=== PATIENT | female | born 1960 | race Caucasian/White ===

== ENCOUNTER 2019-08-03 01:39 | Inpatient (IN) | payer BC ==
[2019-08-03] MEDS ORDERED: Sodium Chloride 0.9% 1000 ML 1,000 ML IV STA ×3 (01:42→03:14)
[2019-08-03] MEDS ORDERED: Zofran 4 MG/2 ML VIAL IV ONE (01:42)
[2019-08-03] MEDS ORDERED: SUBLIMAZE 100 MCG/2 ML IV ONE ×3 (01:42→07:36)
--- NOTE | 2019-08-03 01:42 | ERPHSYRPT ---
- History of Present Illness Time Seen by Provider: 08/03/19 01:39 Historian: patient Exam Limitations: no limitations Physician History: For the past 90 minutes pt has had generalized abdominal cramps, vomiting x10 without blood, diaphoresis and shortness of air. pt denies chest pain, diarrhea , fever. Last BM was yesterday & wnl. Prior to abdominal pain pt ate yogurt, grapes and a peanut butter & jelly sandwich. Allergies/Adverse Reactions: amoxicillin [From Augmentin] Allergy (Intermediate, Verified 08/03/19 02:13) clavulanic acid [From Augmentin] Allergy (Intermediate, Verified 08/03/19 02:13) - Review of Systems Constitutional: Other (diaphoresis), No Fever Respiratory: Dyspnea Cardiac: No Chest Pain Abdominal/Gastrointestinal: Abdominal Pain, Vomiting, No Diarrhea Musculoskeletal: Other (legs have felt "heavy" tonight when abdominal pain started(pt has had this feeling "heavy" feeling in her legs before tonight).) All Other Systems: Reviewed and Negative - Nursing Vital Signs Nursing Vital Signs: Initial Vital Signs Temperature 95.5 F 08/03/19 01:42 Pulse Rate 81 08/03/19 01:42 Respiratory Rate 18 08/03/19 01:42 Blood Pressure 121/81 08/03/19 01:42 O2 Sat by Pulse Oximetry 96 08/03/19 01:42 Pain Scale Pain Intensity 4 - Physical Exam General Appearance: alert Eye Exam: PERRL/EOMI Ears, Nose, Throat Exam: pharynx normal Neck Exam: normal inspection Respiratory Exam: lungs clear Cardiovascular Exam: normal heart sounds Gastrointestinal/Abdomen Exam: soft, other (b.s. mildly hyperactive and normotonic.) Back Exam: normal inspection Extremity Exam: No pedal edema Neurologic Exam: alert, cooperative Skin Exam: diaphoresis - Course Nursing assessment & vital signs reviewed: Yes EKG Interpreted by Me: RATE (71), Sinus Rhythm, NORMAL AXIS, NORMAL INTERVALS - Radiology Exams Chest X-ray Interpretation: Interpreted by me, No Pneumonia - CT Exams Abdomen/Pelvis CT Interpretation: Tele-radiologist Report (no acute findings.) Ordered Tests: Active Orders 24 hr Category Date Time Status EKG-ER Only STAT Care 08/03/19 01:42 Active IV Insertion STAT Care 08/03/19 01:42 Active ABDOMEN AND PELVIS W/0 CONTRAS [CT] Stat Exams 08/03/19 01:44 Taken CHEST 1 VIEW (PORTABLE) Stat Exams 08/03/19 02:07 Taken AMYLASE Stat Lab 08/03/19 02:10 Completed BLOOD CULTURE Stat Lab 08/03/19 02:00 Received CBC W DIFF Stat Lab 08/03/19 02:10 Completed CMP Stat Lab 08/03/19 02:10 Completed CULTURE,URINE Stat Lab 08/03/19 02:17 Received D-DIMER QUANTITATIVE Stat Lab 08/03/19 02:10 Completed LIPASE Stat Lab 08/03/19 02:10 Completed Lactic Acid Stat Lab 08/03/19 03:35 Completed MAGNESIUM Stat Lab 08/03/19 02:10 Completed NT PRO BNP Stat Lab 08/03/19 02:10 Completed Occult Blood, Other Screening Stat Lab 08/03/19 03:21 Completed TROPONIN Stat Lab 08/03/19 02:10 Completed UA W/RFX UR CULTURE Stat Lab 08/03/19 02:17 Completed Medication Summary Generic Name Dose Route Start Last Admin Trade Name Freq PRN Reason Stop Dose Admin Levofloxacin/Dextrose 500 mg in 100 mls @ 100 mls/hr 08/03/19 03:58 Levofloxacin 500mg/100ml D5w IV 08/03/19 04:57 STAT STA Discontinued Medications Generic Name Dose Route Start Last Admin Trade Name Freq PRN Reason Stop Dose Admin Fentanyl Citrate 50 mcg 08/03/19 01:42 08/03/19 01:54 Sublimaze 100 Mcg/2 Ml IV 08/03/19 01:43 50 mcg STAT ONE Administration Fentanyl Citrate Confirm 08/03/19 01:52 Sublimaze 100 Mcg/2 Ml Administered 08/03/19 01:53 Dose 100 mcg .ROUTE .STK-MED ONE Sodium Chloride 1,000 mls @ 999 mls/hr 08/03/19 01:42 08/03/19 04:48 Sodium Chloride 0.9% 1000 Ml IV 08/03/19 02:42 Infused .Q1H1M STA Infusion Sodium Chloride Confirm 08/03/19 01:52 Sodium Chloride 0.9% 1000 Ml Administered 08/03/19 01:53 Dose 1,000 mls @ ud .ROUTE .STK-MED ONE Sodium Chloride 1,000 mls @ 999 mls/hr 08/03/19 02:34 08/03/19 04:48 Sodium Chloride 0.9% 1000 Ml IV 08/03/19 03:34 Infused .Q1H1M STA Infusion Sodium Chloride Confirm 08/03/19 02:41 Sodium Chloride 0.9% 1000 Ml Administered 08/03/19 02:42 Dose 1,000 mls @ ud .ROUTE .STK-MED ONE Sodium Chloride 1,000 mls @ 999 mls/hr 08/03/19 03:14 08/03/19 04:24 Sodium Chloride 0.9% 1000 Ml IV 08/03/19 04:14 999 mls/hr .Q1H1M STA Administration Sodium Chloride Confirm 08/03/19 03:23 Sodium Chloride 0.9% 1000 Ml Administered 08/03/19 03:24 Dose 1,000 mls @ ud .ROUTE .STK-MED ONE Metronidazole 500 mg in 100 mls @ 200 mls/hr 08/03/19 03:58 08/03/19 04:23 Flagyl 500 Mg Ivpb IV 08/03/19 04:27 100 ml/hr STAT STA 100 mls/hr Administration Metronidazole Confirm 08/03/19 04:20 Flagyl 500 Mg Ivpb Administered 08/03/19 04:21 Dose 500 mg in 100 mls @ ud IV .STK-MED ONE Levofloxacin/Dextrose Confirm 08/03/19 04:20 Levofloxacin 500mg/100ml D5w Administered 08/03/19 04:21 Dose 500 mg in 100 mls @ ud IV .STK-MED ONE Ondansetron HCl 4 mg 08/03/19 01:42 08/03/19 01:54 Zofran 4 Mg/2 Ml Vial IV 08/03/19 01:43 4 mg STAT ONE Administration Ondansetron HCl Confirm 08/03/19 01:52 Zofran 4 Mg/2 Ml Vial Administered 08/03/19 01:53 Dose 4 mg .ROUTE .STK-MED ONE Lab/Rad Data: Laboratory Result Diagrams 08/03/19 02:10 08/03/19 02:10 Laboratory Results 08/03/19 08/03/19 08/03/19 Range/Units 03:35 03:21 02:17 WBC (4.0-10.5) K/mm3 RBC (4.1-5.4) M/mm3 Hgb (12.0-16.0) gm/dl Hct (35-47) % MCV (78-100) fl MCH (26-32) pg MCHC (32-36) g/dl RDW (11.5-14.0) % Plt Count (150-450) K/mm3 MPV (7.5-11.0) fl Gran % (36.0-66.0) % Eos # (Auto) (0-0.5) Absolute Lymphs (auto) (1.0-4.6) Absolute Monos (auto) (0.0-1.3) Lymphocytes % (24.0-44.0) % Monocytes % (0.0-12.0) % Eosinophils % (0.00-5.0) % Basophils % (0.0-0.4) % Absolute Granulocytes (1.4-6.9) Basophils # (0-0.4) D-Dimer (215-500) ng/mL Sodium (137-145) mmol/L Potassium (3.5-5.1) mmol/L Chloride (98-107) mmol/L Carbon Dioxide (22-30) mmol/L Anion Gap (5-15) MEQ/L BUN (7-17) mg/dL Creatinine (0.52-1.04) mg/dL Estimated GFR ML/MIN Glucose (74-106) mg/dL Lactic Acid 1.0 (0.4-2.0) Calcium (8.4-10.2) mg/dL Magnesium (1.6-2.3) mg/dL Total Bilirubin (0.2-1.3) mg/dL AST (14-36) U/L ALT (0-35) U/L Alkaline Phosphatase (38-126) U/L Troponin I (0.000-0.034) ng/mL NT-Pro-B Natriuret Pep (0-900) pg/mL Serum Total Protein (6.3-8.2) g/dL Albumin (3.5-5.0) g/dL Amylase (30-110) U/L Lipase (23-300) U/L Urine Color YELLOW (YELLOW) Urine Appearance SLIGHTLY CLOUDY (CLEAR) Urine pH 5.0 (5-6) Ur Specific [place] 1.014 (1.005-1.025) Urine Protein NEGATIVE (Negative) Urine Ketones NEGATIVE (NEGATIVE) Urine Blood NEGATIVE (0-5) Rafat/ul Urine Nitrite NEGATIVE (NEGATIVE) Urine Bilirubin NEGATIVE (NEGATIVE) Urine Urobilinogen NEGATIVE (0-1) mg/dL Ur Leukocyte Esterase NEGATIVE (NEGATIVE) Urine WBC (Auto) 3-5 (0-5) /HPF Urine RBC (Auto) 0-2 (0-2) /HPF U Hyaline Cast (Auto) 11-25 (0-2) /LPF U Epithel Cells (Auto) RARE (FEW) /HPF Urine Bacteria (Auto) RARE (NEGATIVE) /HPF Other Casts (Auto) NEGATIVE (NEGATIVE) /LPF Urine Mucus (Auto) SLIGHT (NEGATIVE) /HPF Urine Culture Reflexed ORDERED SEPARATELY (NO) Urine Glucose NEGATIVE (NEGATIVE) mg/dL Stool Occult Blood NEGATIVE (Negative) 08/03/19 08/03/19 08/03/19 Range/Units 02:10 02:10 02:10 WBC (4.0-10.5) K/mm3 RBC (4.1-5.4) M/mm3 Hgb (12.0-16.0) gm/dl Hct (35-47) % MCV (78-100) fl MCH (26-32) pg MCHC (32-36) g/dl RDW (11.5-14.0) % Plt Count (150-450) K/mm3 MPV (7.5-11.0) fl Gran % (36.0-66.0) % Eos # (Auto) (0-0.5) Absolute Lymphs (auto) (1.0-4.6) Absolute Monos (auto) (0.0-1.3) Lymphocytes % (24.0-44.0) % Monocytes % (0.0-12.0) % Eosinophils % (0.00-5.0) % Basophils % (0.0-0.4) % Absolute Granulocytes (1.4-6.9) Basophils # (0-0.4) D-Dimer [id number] H* (215-500) ng/mL Sodium (137-145) mmol/L Potassium (3.5-5.1) mmol/L Chloride (98-107) mmol/L Carbon Dioxide (22-30) mmol/L Anion Gap (5-15) MEQ/L BUN (7-17) mg/dL Creatinine (0.52-1.04) mg/dL Estimated GFR ML/MIN Glucose (74-106) mg/dL Lactic Acid (0.4-2.0) Calcium (8.4-10.2) mg/dL Magnesium 2.4 H (1.6-2.3) mg/dL Total Bilirubin (0.2-1.3) mg/dL AST (14-36) U/L ALT (0-35) U/L Alkaline Phosphatase (38-126) U/L Troponin I < 0.012 (0.000-0.034) ng/mL NT-Pro-B Natriuret Pep 136 (0-900) pg/mL Serum Total Protein (6.3-8.2) g/dL Albumin (3.5-5.0) g/dL Amylase (30-110) U/L Lipase (23-300) U/L Urine Color (YELLOW) Urine Appearance (CLEAR) Urine pH (5-6) Ur Specific [place] (1.005-1.025) Urine Protein (Negative) Urine Ketones (NEGATIVE) Urine Blood (0-5) Rafat/ul Urine Nitrite (NEGATIVE) Urine Bilirubin (NEGATIVE) Urine Urobilinogen (0-1) mg/dL Ur Leukocyte Esterase (NEGATIVE) Urine WBC (Auto) (0-5) /HPF Urine RBC (Auto) (0-2) /HPF U Hyaline Cast (Auto) (0-2) /LPF U Epithel Cells (Auto) (FEW) /HPF Urine Bacteria (Auto) (NEGATIVE) /HPF Other Casts (Auto) (NEGATIVE) /LPF Urine Mucus (Auto) (NEGATIVE) /HPF Urine Culture Reflexed (NO) Urine Glucose (NEGATIVE) mg/dL Stool Occult Blood (Negative) 08/03/19 08/03/19 Range/Units 02:10 02:10 WBC 21.8 H (4.0-10.5) K/mm3 RBC 4.95 (4.1-5.4) M/mm3 Hgb 14.9 (12.0-16.0) gm/dl Hct 46.1 (35-47) % MCV 93.1 (78-100) fl MCH 30.1 (26-32) pg MCHC 32.3 (32-36) g/dl RDW 15.1 H (11.5-14.0) % Plt Count 260 (150-450) K/mm3 MPV 10.9 (7.5-11.0) fl Gran % 80.2 H (36.0-66.0) % Eos # (Auto) 0.24 (0-0.5) Absolute Lymphs (auto) 3.03 (1.0-4.6) Absolute Monos (auto) 1.00 (0.0-1.3) Lymphocytes % 13.9 L (24.0-44.0) % Monocytes % 4.6 (0.0-12.0) % Eosinophils % 1.1 (0.00-5.0) % Basophils % 0.2 (0.0-0.4) % Absolute Granulocytes 17.48 H (1.4-6.9) Basophils # 0.05 (0-0.4) D-Dimer (215-500) ng/mL Sodium 141 (137-145) mmol/L Potassium 5.2 H (3.5-5.1) mmol/L Chloride 108 H (98-107) mmol/L Carbon Dioxide 20 L (22-30) mmol/L Anion Gap 18.0 H (5-15) MEQ/L BUN 31 H (7-17) mg/dL Creatinine 1.70 H (0.52-1.04) mg/dL Estimated GFR 32.8 ML/MIN Glucose 228 H (74-106) mg/dL Lactic Acid (0.4-2.0) Calcium 10.3 H (8.4-10.2) mg/dL Magnesium (1.6-2.3) mg/dL Total Bilirubin 0.70 (0.2-1.3) mg/dL AST 42 H (14-36) U/L ALT 27 (0-35) U/L Alkaline Phosphatase 239 H (38-126) U/L Troponin I (0.000-0.034) ng/mL NT-Pro-B Natriuret Pep (0-900) pg/mL Serum Total Protein 8.8 H (6.3-8.2) g/dL Albumin 4.8 (3.5-5.0) g/dL Amylase 87 (30-110) U/L Lipase 54 (23-300) U/L Urine Color (YELLOW) Urine Appearance (CLEAR) Urine pH (5-6) Ur Specific [place] (1.005-1.025) Urine Protein (Negative) Urine Ketones (NEGATIVE) Urine Blood (0-5) [place]/ul Urine Nitrite (NEGATIVE) Urine Bilirubin (NEGATIVE) Urine Urobilinogen (0-1) mg/dL Ur Leukocyte Esterase (NEGATIVE) Urine WBC (Auto) (0-5) /HPF Urine RBC (Auto) (0-2) /HPF U Hyaline Cast (Auto) (0-2) /LPF U Epithel Cells (Auto) (FEW) /HPF Urine Bacteria (Auto) (NEGATIVE) /HPF Other Casts (Auto) (NEGATIVE) /LPF Urine Mucus (Auto) (NEGATIVE) /HPF Urine Culture Reflexed (NO) Urine Glucose (NEGATIVE) mg/dL Stool Occult Blood (Negative) - Progress Progress Note: 08/03/19 04:02 pt had multiple episodes of diarrhea in er. Discussed with DrMaru: Alma (obs) - Departure Departure Disposition: Observation, Transfer Clinical Impression: Abdominal pain, Vomiting, Diarrhea, shortness of air, Elevated d-dimer, Leukocytosis Condition: Stable Critical Care Time: No Referrals: DORINA CERRATO MD [Primary Care Provider] -
[2019-08-03] MEDS ORDERED: Sodium Chloride 0.9% 1000 ML 1,000 ML ONE ×3 (01:52→03:23)
[2019-08-03] MEDS ORDERED: SUBLIMAZE 100 MCG/2 ML ONE ×2 (01:52→05:31)
[2019-08-03] MEDS ORDERED: Zofran 4 MG/2 ML VIAL ONE (01:52)
[2019-08-03 02:12] LABS: Absolute Neutrophil Ct (ANC) 17.48 (1.4-6.9); BASOPHIL % 0.2 % (0.0-0.4); Basophil (Absolute #) 0.05 (0-0.4); Eosinophil % 1.1 % (0.00-5.0); Eosinophil (Absolute #) 0.24 (0-0.5); Hematocrit 46.1 % (35-47); Hemoglobin 14.9 gm/dl (12.0-16.0); Lymphocyte (Absolute #) 3.03 (1.0-4.6); Lymphocytes % 13.9 % (24.0-44.0); Mean Cell Volume 93.1 fl (78-100); Mean Corpuscular Hemoglobin 30.1 pg (26-32); Mean Corpuscular Hgb Concent. 32.3 g/dl (32-36); Mean Platelet Volume 10.9 fl (7.5-11.0); Monocytes % 4.6 % (0.0-12.0); Neutrophil % 80.2 % (36.0-66.0); Platelet Count 260 K/mm3 (150-450); Red Blood Count 4.95 M/mm3 (4.1-5.4); Red Cell Distribution Width 15.1 % (11.5-14.0); White Blood Count 21.8 K/mm3 (4.0-10.5)
[2019-08-03 02:24] LABS: ALBUMIN 4.8 g/dL (3.5-5.0); BILIRUBIN,TOTAL 0.7 mg/dL (0.2-1.3); Calcium 10.3 mg/dL (8.4-10.2); Creatinine 1 1.7 mg/dL (0.52-1.04); Potassium 5.2 mmol/L (3.5-5.1); Total Protein 8.8 g/dL (6.3-8.2)
[2019-08-03 02:27] LABS: Appearance SLIGHTLY CLOUDY (CLEAR); Bacteria RARE /HPF (NEGATIVE); Bilirubin NEGATIVE (NEGATIVE); Blood NEGATIVE Ery/ul (0-5); Epithelial Cells RARE /HPF (FEW); Glucose NEGATIVE (NEGATIVE); Ketones NEGATIVE (NEGATIVE); Leukocyte Esterase NEGATIVE (NEGATIVE); Mucus SLIGHT /HPF (NEGATIVE); Nitrite NEGATIVE (NEGATIVE); Protein,Urine Dip NEGATIVE (Negative); RBC 0-2 /HPF (0-2); Specific Gravity 1.014 (1.005-1.025); Urobilinogen NEGATIVE mg/dL (0-1)
[2019-08-03 02:33] LABS: MAGNESIUM 2.4 mg/dL (1.6-2.3)
[2019-08-03] MEDS ORDERED: Levofloxacin 500MG/100ML D5W 500 MG/100 ML BAG IV STA (03:58)
[2019-08-03] MEDS ORDERED: FLAGYL 500 MG IVPB 500 MG/100 ML BAG IV STA (03:58)
[2019-08-03] MEDS ORDERED: Levofloxacin 500MG/100ML D5W 500 MG/100 ML BAG IV ONE (04:20)
[2019-08-03] MEDS ORDERED: FLAGYL 500 MG IVPB 500 MG/100 ML BAG IV ONE (04:20)
[2019-08-03] MEDS ORDERED: NovoLIN R SQ PRN (05:59)
[2019-08-03] MEDS: MORPHINE SULFATE 2 MG INJ IV PRN ×3 (06:41→15:40)
[2019-08-03] MEDS: Sodium Chloride 0.9% 1000 ML 1,000 ML IV SCH ×2 (06:50→20:38)
[2019-08-03 09:06] LABS: Absolute Neutrophil Ct (ANC) 14.83 (1.4-6.9); BASOPHIL % 0.1 % (0.0-0.4); Basophil (Absolute #) 0.01 (0-0.4); Eosinophil % 0.1 % (0.00-5.0); Eosinophil (Absolute #) 0.01 (0-0.5); Hematocrit 37.9 % (35-47); Hemoglobin 12.2 gm/dl (12.0-16.0); Lymphocyte (Absolute #) 0.72 (1.0-4.6); Lymphocytes % 4.4 % (24.0-44.0); Mean Cell Volume 94.3 fl (78-100); Mean Corpuscular Hemoglobin 30.3 pg (26-32); Mean Corpuscular Hgb Concent. 32.2 g/dl (32-36); Mean Platelet Volume 10.8 fl (7.5-11.0); Monocyte (Absolute #) 0.87 (0.0-1.3); Monocytes % 5.3 % (0.0-12.0); Neutrophil % 90.1 % (36.0-66.0); Platelet Count 168 K/mm3 (150-450); Red Blood Count 4.02 M/mm3 (4.1-5.4); Red Cell Distribution Width 14.8 % (11.5-14.0); White Blood Count 16.4 K/mm3 (4.0-10.5)
--- NOTE | 2019-08-03 09:06 | XRAY ---
Indication: Abdomen pain. Multiple contiguous axial images obtained through the abdomen and pelvis without contrast as ordered. Comparison: None Lung bases demonstrates minimal bilateral dependent atelectasis. Heart is borderline enlarged. Moderate size hiatal hernia with partial intrathoracic stomach. Noncontrasted stomach and bowel loops appear nonobstructed. Patient reports appendectomy, hysterectomy, and cholecystectomy. Mild/moderate diffuse scattered colonic fecal debris throughout, greatest in the sigmoid. No free fluid/air. Inferior left kidney demonstrates nonobstructing punctate calculus. Plunkett catheter drains the urinary bladder. Remaining liver, pancreas, spleen, adrenal glands, kidneys, and ureters appear unremarkable for noncontrast exam. Minimal aortoiliac calcifications without AAA. Osseous structures intact with L5-S1 posterior fusion surgery. Impression: 1. Diffuse fecal stasis without obstruction. 2. Nonobstructing left renal micro-calculus, hiatal hernia with partial intrathoracic stomach, and borderline cardiomegaly. 3. Remaining CT abdomen/pelvis without contrast exam is negative. Comment: Preliminary interpretation was made by [facility]. No critical discrepancy.
[2019-08-03 09:08] LABS: ANION GAP 14.5 MEQ/L (5-15); Calcium 8.3 mg/dL (8.4-10.2); Creatinine 1 1.34 mg/dL (0.52-1.04); Potassium 5.6 mmol/L (3.5-5.1)
--- NOTE | 2019-08-03 09:08 | XRAY ---
Indication: Dyspnea. Comparison: None Portable apical lordotic chest demonstrates cardiomegaly. No focal infiltrate, consolidation, or large effusion. Bony thorax intact. Impression: Cardiomegaly. Negative acute pneumonic process or CHF.
[2019-08-03] MEDS: Ativan 2 MG/1 ML VIAL IV PRN ×2 (09:14→12:33)
--- NOTE | 2019-08-03 09:28 | PCM.HP ---
History of Present Illness - Chief Complaint Chief Complaint: abdominal pain; dyspnea; elevated d-dimer; leukocytosis; ARF; diarrhea Date: 08/03/19 History of Present Illness: is a 59 year old female of Dr. Noble in [place] who presented to the ER with vomiting and abdominal pain and then developed diarrhea. 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 Capone. Before she went to work, she had a low blood glucose so she ate a peanut butter sandwich. At work she reports developing nausea around 9:30 pm and then vomited x 10. She reports her blood glucose dropped so they have her glucagon injection at work and took her insulin pump off. She had the vomiting and nausea before the glucagon was given. Her reports they called him to come pick her up. She reports abdominmal pain started around 11 pm and she was brought to the ER. She also reports she was short of breath when walking into work and couldn't even make it to wear she needed to be. She has city water, has not traveled and ate at [employer] two night ago. She reports she was told her temperature in the ER was 93 degrees and she needed a bear hugger. She is not sure why it was low as she was not out in the cold for any extended period of time. She reports pain in both her lower quadrants. She reports hx of fibromyalgia and her reports she does have a low pain tolerance. Diarrhea started in the ER per patient and ER report. She has not had any kidney problems in the past. She reports she has not been drinking much or urinating much the past few days and her states that after her knee surgery in Apr she seemed to isolate herself in her room. She sees Dr. Kennedy for her diabetes, Dr. España for her heart problems, and Dr. Peraza for her mental health problems. She reports continued severe lower abdominal pain that is only relieved by pain medication for about 30 minutes. No history of blood clots; she reports her legs have felt heavy for days. - Review of Systems Constitutional: Other Eyes: No Symptoms Ears, Nose, & Throat: No Symptoms Respiratory: Other (dyspnea with exertion), No Cough Cardiac: No Symptoms, No Chest Pain Abdominal/Gastrointestinal: Abdominal Pain, Nausea, Vomiting, Diarrhea Genitourinary Symptoms: Other (not urinating as much as normal) Musculoskeletal: No Symptoms Skin: No Symptoms, No Rash Psychological: Depression Medications & Allergies Home Medications: Home Medication List Alendronate Sodium 70 mg PO WEEKLY 08/03/19 [History Confirmed 08/03/19] Amlodipine Besylate 2.5 mg PO DAILY 08/03/19 [History Confirmed 08/03/19] Aspirin EC 325 mg [Ecotrin 325 MG] 325 mg PO DAILY 08/03/19 [History Confirmed 08/03/19] Atorvastatin Calcium [Lipitor 20MG Tablet] 20 mg PO DAILY 08/03/19 [History Confirmed 08/03/19] Clonazepam 1 mg PO TID 08/03/19 [History Confirmed 08/03/19] Clopidogrel Bisulfate [Clopidogrel] 75 mg PO DAILY 08/03/19 [History Confirmed 08/03/19] Ergocalciferol (Vitamin D2) [Vitamin D] 50,000 unit PO DAILY 08/03/19 [History Confirmed 08/03/19] Furosemide 40 mg [Lasix 40 MG] 40 mg PO DAILY 08/03/19 [History Confirmed 08/03/19] Insulin Regular, Human [Humulin R U-500 Kwikpen] 500 unit SQ UD 08/03/19 [ History Confirmed 08/03/19] Isosorbide Mononitrate 60 mg [Imdur 60MG] 60 mg PO DAILY 08/03/19 [History Confirmed 08/03/19] Nitroglycerin [Nitrostat] 0.4 mg SL UD 08/03/19 [History Confirmed 08/03/19] Pantoprazole 20 mg [Protonix 20MG Tablet] 20 mg PO DAILY 08/03/19 [ History Confirmed 08/03/19] Potassium Chloride 10 Meq Tab* [Klor Con 10 MEQ] 20 meq PO DAILY 08/03/19 [ History Confirmed 08/03/19] Venlafaxine HCl [Effexor Xr] 150 mg PO DAILY 08/03/19 [History Confirmed ] buPROPion HCl [Bupropion HCl Sr] 150 mg PO DAILY 08/03/19 [History Confirmed ] carvediloL [Carvedilol] 6.25 mg PO BID 08/03/19 [History Confirmed 08/03/19] lamoTRIgine [Lamotrigine] 100 mg PO DAILY 08/03/19 [History Confirmed 08/03/19] lisinopriL [Lisinopril] 10 mg PO BID 08/03/19 [History Confirmed 08/03/19] Allergies/Adverse Reactions: Allergies Allergy/AdvReac Type Severity Reaction Status Date / Time amoxicillin [From Augmentin] Allergy Intermediate Verified 08/03/19 02:13 clavulanic acid Allergy Intermediate Verified 08/03/19 02:13 [From Augmentin] - Past Medical History Neurological History: Peripheral Neuropathy Cardiac History: Coronary Artery Disease, Hypertension, Other (stents x2 (in LAD ) with Dr. España) Endocrine Medical History: Diabetes Type II, Other (sees Dr. Kennedy; osteopenia) Pyscho-Social History: Bipolar, Depression Comment: frequent constipation - Past Surgical History Past Surgical History: Yes GI Surgical History: Appendectomy, Cholecystectomy Musculskeletal Surgical Hx: Orthopedic Surgery, Other (left knee meniscus surgery 2019) Female Surgical History: Hysterectomy, Section, Tubal Ligation, Other ( x 3) Other Surgical History: back surgery, rt knee scope - Social History Smoking Status: Former smoker How long have you smoked: quit 1999 Exposure to second hand smoke: No Alcohol: None Drug Use: none Significant Family History: heart disease, other (father had lung cancer; mother had heart disease and CHF; no family hx of blood clots) - Physical Exam Vital Signs: Vital Signs - 24 hr Temp Pulse Resp BP Pulse Ox 08/03/19 08:30 98.0 F 78 18 160/70 95 08/03/19 08:00 97.6 F 72 119/72 95 08/03/19 07:58 95 08/03/19 05:50 97.6 F 72 18 119/72 98 08/03/19 05:37 97.3 F 78 18 119/82 96 08/03/19 05:00 96.8 F 75 18 118/58 96 08/03/19 04:30 96.6 F 74 18 135/53 98 08/03/19 03:53 96.3 F 71 18 125/55 97 08/03/19 03:19 96.3 F 71 18 114/72 97 02/13/20 02:50 96.4 F 72 18 140/60 97 08/03/19 02:10 97.3 F 75 22 117/86 98 08/03/19 01:50 74 22 124/67 97 08/03/19 01:42 95.5 F 81 18 121/81 96 General Appearance: moderate distress, obese, other ( at bedside; answers questions appropriately) Neurologic Exam: alert, cooperative Respiratory Exam: normal breath sounds, lungs clear, No crackles/rales, No rhonchi, No wheezing Cardiovascular Exam: regular rate/rhythm, normal heart sounds, No murmur, No friction rub, No gallop Gastrointestinal/Abdomen Exam: soft, other (no bowel sounds, + guarding at left lower quadrant, no rigidity, tender throughout), No mass Extremity Exam: other (no c/c/e, no tenderness of calves) Results - Labs Lab/Micro Results: Accuchecks Date 08/03/19 Time 08:07 Accucheck Value: 275 Lab Results-Last 24 Hours 08/03/19 08/03/19 08/03/19 Range/Units 02:10 02:10 02:10 WBC 21.8 H (4.0-10.5) K/mm3 RBC 4.95 (4.1-5.4) M/mm3 Hgb 14.9 (12.0-16.0) gm/dl Hct 46.1 (35-47) % MCV 93.1 (78-100) fl MCH 30.1 (26-32) pg MCHC 32.3 (32-36) g/dl RDW 15.1 H (11.5-14.0) % Plt Count 260 (150-450) K/mm3 MPV 10.9 (7.5-11.0) fl Gran % 80.2 H (36.0-66.0) % Eos # (Auto) 0.24 (0-0.5) Absolute Lymphs (auto) 3.03 (1.0-4.6) Absolute Monos (auto) 1.00 (0.0-1.3) Lymphocytes % 13.9 L (24.0-44.0) % Monocytes % 4.6 (0.0-12.0) % Eosinophils % 1.1 (0.00-5.0) % Basophils % 0.2 (0.0-0.4) % Absolute Granulocytes 17.48 H (1.4-6.9) Basophils # 0.05 (0-0.4) D-Dimer (215-500) ng/mL Sodium 141 (137-145) mmol/L Potassium 5.2 H (3.5-5.1) mmol/L Chloride 108 H (98-107) mmol/L Carbon Dioxide 20 L (22-30) mmol/L Anion Gap 18.0 H (5-15) MEQ/L BUN 31 H (7-17) mg/dL Creatinine 1.70 H (0.52-1.04) mg/dL Estimated GFR 32.8 ML/MIN Glucose 228 H (74-106) mg/dL Lactic Acid (0.4-2.0) Calcium 10.3 H (8.4-10.2) mg/dL Magnesium (1.6-2.3) mg/dL Total Bilirubin 0.70 (0.2-1.3) mg/dL AST 42 H (14-36) U/L ALT 27 (0-35) U/L Alkaline Phosphatase 239 H (38-126) U/L Troponin I < 0.012 (0.000-0.034) ng/mL NT-Pro-B Natriuret Pep (0-900) pg/mL Serum Total Protein 8.8 H (6.3-8.2) g/dL Albumin 4.8 (3.5-5.0) g/dL Amylase 87 (30-110) U/L Lipase 54 (23-300) U/L Urine Color (YELLOW) Urine Appearance (CLEAR) Urine pH (5-6) Ur Specific [place] (1.005-1.025) Urine Protein (Negative) Urine Ketones (NEGATIVE) Urine Blood (0-5) Rafat/ul Urine Nitrite (NEGATIVE) Urine Bilirubin (NEGATIVE) Urine Urobilinogen (0-1) mg/dL Ur Leukocyte Esterase (NEGATIVE) Urine WBC (Auto) (0-5) /HPF Urine RBC (Auto) (0-2) /HPF U Hyaline Cast (Auto) (0-2) /LPF U Epithel Cells (Auto) (FEW) /HPF Urine Bacteria (Auto) (NEGATIVE) /HPF Other Casts (Auto) (NEGATIVE) /LPF Urine Mucus (Auto) (NEGATIVE) /HPF Urine Culture Reflexed (NO) Urine Glucose (NEGATIVE) mg/dL Stool Occult Blood (Negative) 08/03/19 08/03/19 08/03/19 Range/Units 02:10 02:10 02:17 WBC (4.0-10.5) K/mm3 RBC (4.1-5.4) M/mm3 Hgb (12.0-16.0) gm/dl Hct (35-47) % MCV (78-100) fl MCH (26-32) pg MCHC (32-36) g/dl RDW (11.5-14.0) % Plt Count (150-450) K/mm3 MPV (7.5-11.0) fl Gran % (36.0-66.0) % Eos # (Auto) (0-0.5) Absolute Lymphs (auto) (1.0-4.6) Absolute Monos (auto) (0.0-1.3) Lymphocytes % (24.0-44.0) % Monocytes % (0.0-12.0) % Eosinophils % (0.00-5.0) % Basophils % (0.0-0.4) % Absolute Granulocytes (1.4-6.9) Basophils # (0-0.4) D-Dimer 56148 H* (215-500) ng/mL Sodium (137-145) mmol/L Potassium (3.5-5.1) mmol/L Chloride (98-107) mmol/L Carbon Dioxide (22-30) mmol/L Anion Gap (5-15) MEQ/L BUN (7-17) mg/dL Creatinine (0.52-1.04) mg/dL Estimated GFR ML/MIN Glucose (74-106) mg/dL Lactic Acid (0.4-2.0) Calcium (8.4-10.2) mg/dL Magnesium 2.4 H (1.6-2.3) mg/dL Total Bilirubin (0.2-1.3) mg/dL AST (14-36) U/L ALT (0-35) U/L Alkaline Phosphatase (38-126) U/L Troponin I (0.000-0.034) ng/mL NT-Pro-B Natriuret Pep 136 (0-900) pg/mL Serum Total Protein (6.3-8.2) g/dL Albumin (3.5-5.0) g/dL Amylase (30-110) U/L Lipase (23-300) U/L Urine Color YELLOW (YELLOW) Urine Appearance SLIGHTLY CLOUDY (CLEAR) Urine pH 5.0 (5-6) Ur Specific [place] 1.014 (1.005-1.025) Urine Protein NEGATIVE (Negative) Urine Ketones NEGATIVE (NEGATIVE) Urine Blood NEGATIVE (0-5) Rafat/ul Urine Nitrite NEGATIVE (NEGATIVE) Urine Bilirubin NEGATIVE (NEGATIVE) Urine Urobilinogen NEGATIVE (0-1) mg/dL Ur Leukocyte Esterase NEGATIVE (NEGATIVE) Urine WBC (Auto) 3-5 (0-5) /HPF Urine RBC (Auto) 0-2 (0-2) /HPF U Hyaline Cast (Auto) 11-25 (0-2) /LPF U Epithel Cells (Auto) RARE (FEW) /HPF Urine Bacteria (Auto) RARE (NEGATIVE) /HPF Other Casts (Auto) NEGATIVE (NEGATIVE) /LPF Urine Mucus (Auto) SLIGHT (NEGATIVE) /HPF Urine Culture Reflexed ORDERED SEPARATELY (NO) Urine Glucose NEGATIVE (NEGATIVE) mg/dL Stool Occult Blood (Negative) 08/03/19 08/03/19 08/03/19 Range/Units 03:21 03:35 08:50 WBC 16.4 H (4.0-10.5) K/mm3 RBC 4.02 L (4.1-5.4) M/mm3 Hgb 12.2 (12.0-16.0) gm/dl Hct 37.9 (35-47) % MCV 94.3 (78-100) fl MCH 30.3 (26-32) pg MCHC 32.2 (32-36) g/dl RDW 14.8 H (11.5-14.0) % Plt Count 168 D (150-450) K/mm3 MPV 10.8 (7.5-11.0) fl Gran % 90.1 H (36.0-66.0) % Eos # (Auto) 0.01 (0-0.5) Absolute Lymphs (auto) 0.72 L (1.0-4.6) Absolute Monos (auto) 0.87 (0.0-1.3) Lymphocytes % 4.4 L (24.0-44.0) % Monocytes % 5.3 (0.0-12.0) % Eosinophils % 0.1 (0.00-5.0) % Basophils % 0.1 (0.0-0.4) % Absolute Granulocytes 14.83 H (1.4-6.9) Basophils # 0.01 (0-0.4) D-Dimer (215-500) ng/mL Sodium (137-145) mmol/L Potassium (3.5-5.1) mmol/L Chloride (98-107) mmol/L Carbon Dioxide (22-30) mmol/L Anion Gap (5-15) MEQ/L BUN (7-17) mg/dL Creatinine (0.52-1.04) mg/dL Estimated GFR ML/MIN Glucose (74-106) mg/dL Lactic Acid 1.0 (0.4-2.0) Calcium (8.4-10.2) mg/dL Magnesium (1.6-2.3) mg/dL Total Bilirubin (0.2-1.3) mg/dL AST (14-36) U/L ALT (0-35) U/L Alkaline Phosphatase (38-126) U/L Troponin I (0.000-0.034) ng/mL NT-Pro-B Natriuret Pep (0-900) pg/mL Serum Total Protein (6.3-8.2) g/dL Albumin (3.5-5.0) g/dL Amylase (30-110) U/L Lipase (23-300) U/L Urine Color (YELLOW) Urine Appearance (CLEAR) Urine pH (5-6) Ur Specific [place] (1.005-1.025) Urine Protein (Negative) Urine Ketones (NEGATIVE) Urine Blood (0-5) Rafat/ul Urine Nitrite (NEGATIVE) Urine Bilirubin (NEGATIVE) Urine Urobilinogen (0-1) mg/dL Ur Leukocyte Esterase (NEGATIVE) Urine WBC (Auto) (0-5) /HPF Urine RBC (Auto) (0-2) /HPF U Hyaline Cast (Auto) (0-2) /LPF U Epithel Cells (Auto) (FEW) /HPF Urine Bacteria (Auto) (NEGATIVE) /HPF Other Casts (Auto) (NEGATIVE) /LPF Urine Mucus (Auto) (NEGATIVE) /HPF Urine Culture Reflexed (NO) Urine Glucose (NEGATIVE) mg/dL Stool Occult Blood NEGATIVE (Negative) 08/03/19 Range/Units 08:50 WBC (4.0-10.5) K/mm3 RBC (4.1-5.4) M/mm3 Hgb (12.0-16.0) gm/dl Hct (35-47) % MCV (78-100) fl MCH (26-32) pg MCHC (32-36) g/dl RDW (11.5-14.0) % Plt Count (150-450) K/mm3 MPV (7.5-11.0) fl Gran % (36.0-66.0) % Eos # (Auto) (0-0.5) Absolute Lymphs (auto) (1.0-4.6) Absolute Monos (auto) (0.0-1.3) Lymphocytes % (24.0-44.0) % Monocytes % (0.0-12.0) % Eosinophils % (0.00-5.0) % Basophils % (0.0-0.4) % Absolute Granulocytes (1.4-6.9) Basophils # (0-0.4) D-Dimer (215-500) ng/mL Sodium 139 (137-145) mmol/L Potassium 5.6 H (3.5-5.1) mmol/L Chloride 112 H (98-107) mmol/L Carbon Dioxide 18 L (22-30) mmol/L Anion Gap 14.5 (5-15) MEQ/L BUN 29 H (7-17) mg/dL Creatinine 1.34 H (0.52-1.04) mg/dL Estimated GFR 43.2 ML/MIN Glucose 295 H (74-106) mg/dL Lactic Acid (0.4-2.0) Calcium 8.3 L D (8.4-10.2) mg/dL Magnesium (1.6-2.3) mg/dL Total Bilirubin (0.2-1.3) mg/dL AST (14-36) U/L ALT (0-35) U/L Alkaline Phosphatase (38-126) U/L Troponin I (0.000-0.034) ng/mL NT-Pro-B Natriuret Pep (0-900) pg/mL Serum Total Protein (6.3-8.2) g/dL Albumin (3.5-5.0) g/dL Amylase (30-110) U/L Lipase (23-300) U/L Urine Color (YELLOW) Urine Appearance (CLEAR) Urine pH (5-6) Ur Specific [place] (1.005-1.025) Urine Protein (Negative) Urine Ketones (NEGATIVE) Urine Blood (0-5) Rafat/ul Urine Nitrite (NEGATIVE) Urine Bilirubin (NEGATIVE) Urine Urobilinogen (0-1) mg/dL Ur Leukocyte Esterase (NEGATIVE) Urine WBC (Auto) (0-5) /HPF Urine RBC (Auto) (0-2) /HPF U Hyaline Cast (Auto) (0-2) /LPF U Epithel Cells (Auto) (FEW) /HPF Urine Bacteria (Auto) (NEGATIVE) /HPF Other Casts (Auto) (NEGATIVE) /LPF Urine Mucus (Auto) (NEGATIVE) /HPF Urine Culture Reflexed (NO) Urine Glucose (NEGATIVE) mg/dL Stool Occult Blood (Negative) Accuchecks Date 08/03/19 Time 08:07 Accucheck Value: 275 - Radiology Impressions Radiology Exams & Impressions: Radiology Procedures Category Date Time Status ABDOMEN AND PELVIS W/0 CONTRAS [CT] Stat Exams 08/03/19 01:44 Completed CHEST 1 VIEW (PORTABLE) Stat Exams 08/03/19 02:07 Completed PULMONARY PERF VENTILATION [NUCMED] Stat Exams 08/03/19 05:59 Ordered VENOUS BILATERAL EXTREMITY [US] Stat Exams 08/03/19 05:59 Ordered - Other Procedures and Tests Respiratory Therapy 08/03/19 05:59 Oxygen Nasal Cannula 2 lpm 08/03/19 09:12 EKG STAT 08/03/19 11:11 EKG ONCE Assessment/Plan (1) Acute abdominal pain in left lower quadrant Current Visit: Yes Status: Acute Assessment & Plan: General surgeon consulted; GI panel and C.diff ordered. Repeat blood work ordered. NPO at this time. Fentanyl ordered for pain. Non contrasted CT scan done in ER that showed some mid colon thickening but no acute findings but contrast could not be used. Exam is concerning. On levofloxacin and metronidazole Day 1 for possible colitis/diverticulitis. Code(s): R10.32 - LEFT LOWER QUADRANT PAIN (2) Diarrhea Current Visit: Yes Status: Acute Assessment & Plan: See plan under abdominal pain. Code(s): R19.7 - DIARRHEA, UNSPECIFIED (3) Acute renal failure Current Visit: Yes Status: Acute Assessment & Plan: Baseline creatinine is not known. Potassium is slightly high but EKG does not show prolonged qrs or peaked T -waves. I have ordered lantus and she has low dose sliding scale ordered. May need lasix IV if continues to be high. Will recheck in 6 hours. Nephrology consulted. Accurate ins and outs ordered and patient has cheatham catheter in place. She received boluses of IV fluids in ER and has fluids running at 100 mL per hour currently. Will hold guanaco. (4) Elevated d-dimer Current Visit: Yes Status: Acute Assessment & Plan: VQ scan ordered for 10:30 AM; I have not anticoagulated her until we have this result back and general surgeon has seen her as she may require surgery. Venous dopplers ordered. 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 checking Hgb A1C. Code(s): E11.9 - TYPE 2 DIABETES MELLITUS WITHOUT COMPLICATIONS (6) Leukocytosis Current Visit: Yes Status: Acute Assessment & Plan: May be due to infection or vomiting. Rechecking CBC. Code(s): D72.829 - ELEVATED WHITE BLOOD CELL COUNT, UNSPECIFIED (7) History of coronary artery disease Current Visit: Yes Status: Acute Assessment & Plan: Holding aspirin and plavix at this time as she may need anticoagulated if ok with surgeons and if any findings on VQ scan or dopplers of legs concerning for clot. Rechecked and improved from when she was in ER. Code(s): Z86.79 - PERSONAL HISTORY OF OTHER DISEASES OF THE CIRCULATORY SYSTEM (8) Bipolar disorder Current Visit: Yes Status: Acute Assessment & Plan: Continue home medication. Code(s): F31.9 - BIPOLAR DISORDER, UNSPECIFIED
[2019-08-03] MEDS ORDERED: Lantus Insulin SQ ONE (09:30)
[2019-08-03] MEDS: Zofran 4 MG/2 ML VIAL IV PRN ×2 (10:02→20:36)
[2019-08-03] MEDS: PROTONIX 40 MG IV IV SCH (10:53)
--- NOTE | 2019-08-03 10:53 | XRAY ---
Indication: Elevated d-dimer. Two-dimensional sonogram and color Doppler imaging of the major venous vessels of the left and right leg was performed. Comparison: None No thrombus seen in the examined deep venous vessels of the left and right leg including greater saphenous vein. Veins demonstrate normal compressibility. Venous waveforms are normal with and without augmentation. Impression: Left and right legs negative for DVT.
[2019-08-03] MEDS: FLAGYL 500 MG IVPB 500 MG/100 ML BAG IV SCH ×3 (12:33→23:10)
[2019-08-03] MEDS: NovoLOG Insulin SQ PRN ×3 (12:34→20:36)
[2019-08-03 12:37] LABS: 027 TOX PROD PRESUMPTIVE NEGATIVE (NEGATIVE); TOXIGENIC C. DIFF ORG NEGATIVE (NEGATIVE)
[2019-08-03] MEDS: lamICTAL 100MG TABLET PO SCH (12:47)
[2019-08-03] MEDS: Imdur 60MG PO SCH (12:47)
[2019-08-03] MEDS: Effexor XR 75 MG PO SCH (12:48)
[2019-08-03] MEDS: Wellbutrin SR 150 MG PO SCH (12:52)
[2019-08-03] MEDS: Coreg 6.25 MG PO SCH ×2 (12:52→20:37)
[2019-08-03 13:58] LABS: C. Difficile Organism NEGATIVE (NEGATIVE); Campylobacter NEGATIVE (NEGATIVE); Enteroaggregative E.coli NEGATIVE (NEGATIVE); Enteropathogenic E.coli POSITIVE (NEGATIVE); Enterotoxigenic E.coli NEGATIVE (NEGATIVE); Plesiomonas shigelloides NEGATIVE (NEGATIVE); Salmonella NEGATIVE (NEGATIVE); Shiga-like toxin prod.E.coli NEGATIVE (NEGATIVE); Vibrio NEGATIVE (NEGATIVE); Vibrio cholerae NEGATIVE (NEGATIVE); Yersinia enterocolitica NEGATIVE (NEGATIVE)
[2019-08-03 13:59] LABS: Adenovirus F 40/41 NEGATIVE (NEGATIVE); Astrovirus NEGATIVE (NEGATIVE); Cryptosporidium NEGATIVE (NEGATIVE); Cyclospora cayentanensis NEGATIVE (NEGATIVE); Entamoeaba histolytica NEGATIVE (NEGATIVE); Giardia lamblia NEGATIVE (NEGATIVE); Norovirus GI/GII NEGATIVE (NEGATIVE); Rotavirus A NEGATIVE (NEGATIVE); Sapovirus NEGATIVE (NEGATIVE)
--- NOTE | 2019-08-03 14:11 | XRAY ---
Indication: Chest pain, short of breath, and elevated d-dimer. Comparison: None Patient received 5 mCi technetium 99 MAA for the perfusion portion of the exam. Patient inhaled 29 mCi air slice technetium 99 DTPA for the ventilation portion of the exam. Multiple planar images obtained. Perfusion images demonstrates normal homogeneous radiopharmaceutical activity bilaterally. Ventilation images also demonstrates normal homogeneous radiopharmaceutical activity bilaterally. There is mild radiopharmaceutical activity from incidental ingestion. Impression: Normal nuclear medicine ventilation/perfusion scan.
[2019-08-03 14:36] LABS: ANION GAP 14.9 MEQ/L (5-15); Calcium 7.8 mg/dL (8.4-10.2); Creatinine 1 1.12 mg/dL (0.52-1.04); Potassium 4.5 mmol/L (3.5-5.1)
--- NOTE | 2019-08-03 15:11 | CONS ---
CONSULT DATE: 08/03/2019: REASON FOR CONSULT: HISTORY: Miss Oscar was in her normal state of health. She work at the [employer]. She has been working there for the last few weeks. She has been taking a lot of anti-inflammatories. She ate some yogurt and she did not think the yogurt seemed quite right and then she had severe vomiting and severe diarrhea. She came to the hospital. Her creatinine is 16. She is obviously in distress. She is not feeling good. Her vomiting has basically stopped. Her diarrhea has slowed down. She has a Plunkett in place. Her urine is clear and fairly generous. Her IV is at 100. Her is present. She has not had anything like this before or anything recently. She is normally slightly constipated. Diarrhea is just not her thing. PAST MEDICAL HISTORY: ALLERGIES: Per the chart. MEDICATIONS: Per the chart. PAST SURGICAL HISTORY: Per the chart. SOCIAL HISTORY: Negative. FAMILY HISTORY: Negative. REVIEW OF SYSTEMS: She is robust. She is mildly obese. Her abdomen is totally soft. Her Plunkett is in place which is nice. LAB DATA AND TESTS: Her urine is clear and looks fairly hydrated. White count was 20,000. Clostridium difficile is pending. CT scan nothing particular. IMPRESSION: I believe this is all medical this could be due to: 1) A regular gastroenteritis. 2) Food poisoning related to the yogurt. She could have Clostridium difficile and Clostridium difficile is being checked. PLAN: We will be supportive of medical service. I am not aware of any surgical problem at this time.
[2019-08-03] MEDS ORDERED: ZOCOR 20MG ONE (19:40)
[2019-08-03] MEDS: SUBLIMAZE 100 MCG/2 ML IV PRN (20:36)
[2019-08-03] MEDS: ZOCOR 20MG PO SCH (20:37)
[2019-08-03] MEDS ORDERED: Levofloxacin 500MG/100ML D5W 500 MG/100 ML BAG IV SCH (22:00)
[2019-08-03] MEDS ORDERED: Levaquin 250MG/50ML D5W 250 MG/50 ML BAG IV SCH (22:00)
[2019-08-04] MEDS: Ativan 2 MG/1 ML VIAL IV PRN ×2 (00:04→08:30)
[2019-08-04] MEDS: SUBLIMAZE 100 MCG/2 ML IV PRN ×7 (00:18→19:25)
[2019-08-04] MEDS: NovoLOG Insulin SQ PRN ×5 (00:20→21:22)
[2019-08-04] MEDS: Zofran 4 MG/2 ML VIAL IV PRN ×2 (03:59→09:26)
[2019-08-04] MEDS ORDERED: Levaquin 250MG/50ML D5W 250 MG/50 ML BAG IV SCH (05:00)
[2019-08-04] MEDS: FLAGYL 500 MG IVPB 500 MG/100 ML BAG IV SCH ×4 (05:25→23:43)
[2019-08-04] MEDS: Sodium Chloride 0.9% 1000 ML 1,000 ML IV SCH ×2 (05:28→16:04)
[2019-08-04 05:37] LABS: Absolute Neutrophil Ct (ANC) 10.73 (1.4-6.9); Basophil (Absolute #) 0 (0-0.4); Eosinophil % 0.2 % (0.00-5.0); Eosinophil (Absolute #) 0.02 (0-0.5); Hematocrit 33.5 % (35-47); Hemoglobin 10.7 gm/dl (12.0-16.0); Lymphocytes % 11.5 % (24.0-44.0); Mean Cell Volume 94.9 fl (78-100); Mean Corpuscular Hemoglobin 30.3 pg (26-32); Mean Corpuscular Hgb Concent. 31.9 g/dl (32-36); Mean Platelet Volume 10.2 fl (7.5-11.0); Monocyte (Absolute #) 0.84 (0.0-1.3); Monocytes % 6.4 % (0.0-12.0); Neutrophil % 81.9 % (36.0-66.0); Platelet Count 157 K/mm3 (150-450); Red Blood Count 3.53 M/mm3 (4.1-5.4); Red Cell Distribution Width 14.9 % (11.5-14.0); White Blood Count 13.1 K/mm3 (4.0-10.5)
[2019-08-04 06:06] LABS: ALBUMIN 3.2 g/dL (3.5-5.0); ALKALINE PHOSPHATASE 128 U/L (38-126); ANION GAP 8.4 MEQ/L (5-15); BLOOD UREA NITROGEN 18 mg/dL (7-17); CHLORIDE 110 mmol/L (98-107); Calcium 7.7 mg/dL (8.4-10.2); Carbon Dioxide 22 mmol/L (22-30); Creatinine 1 0.76 mg/dL (0.52-1.04); Glucose 209 mg/dL (74-106); Potassium 3.9 mmol/L (3.5-5.1); SGOT/AST 27 U/L (14-36); SGPT/ALT 27 U/L (0-35); SODIUM 137 mmol/L (137-145); Total Protein 6.2 g/dL (6.3-8.2)
[2019-08-04] MEDS: Effexor XR 75 MG PO SCH (08:31)
[2019-08-04] MEDS: PROTONIX 40 MG IV IV SCH (08:31)
[2019-08-04] MEDS: Imdur 60MG PO SCH (08:31)
[2019-08-04] MEDS: Wellbutrin SR 150 MG PO SCH (08:31)
[2019-08-04] MEDS: lamICTAL 100MG TABLET PO SCH (08:31)
[2019-08-04] MEDS: Coreg 6.25 MG PO SCH ×2 (08:32→21:22)
--- NOTE | 2019-08-04 08:43 | PCM.NOTE ---
Date and Time: 08/04/19 0843 Subjective Assessment: Patient reports continued lower abdominal pain. She reports not seeing blood in her stool and passing gas. She has not had anything besides ice chips. - Review of Systems Constitutional: No Symptoms Eyes: No Symptoms Ears, Nose, & Throat: No Symptoms Respiratory: No Symptoms Cardiac: No Symptoms Abdominal/Gastrointestinal: Abdominal Pain, Nausea, Diarrhea Genitourinary Symptoms: No Symptoms Musculoskeletal: No Symptoms Skin: No Symptoms Objective Exam General Appearance: no apparent distress, alert, obese Neurologic Exam: alert, cooperative, normal mood/affect Skin Exam: normal color, warm, dry, No rash Respiratory Exam: normal breath sounds, lungs clear, No crackles/rales, No rhonchi, No wheezing Cardiovascular Exam: regular rate/rhythm, normal heart sounds, No murmur, No friction rub, No gallop Gastrointestinal/Abdomen Exam: soft, normal bowel sounds, tenderness, other ( tender in right and left lower quadrants bilat), No distention, No mass, No guarding Extremity Exam: other (no c/c/e) OBJECTIVE DATA Vital Signs: Vital Signs - 24 hr Temp Pulse Resp BP Pulse Ox 08/04/19 07:27 96 08/04/19 07:16 97.7 F 82 20 131/62 96 08/04/19 04:00 98.3 F 81 18 158/69 95 08/04/19 00:00 97.8 F 90 18 133/60 98 08/03/19 20:00 97.8 F 90 18 150/66 98 08/03/19 16:00 98.9 F 82 18 165/66 92 L 08/03/19 12:00 99.7 F 85 18 151/67 98 Pain Assessment - Last Documented Pain Intensity 10 Pain Scale Used 0-10 Pain Scale Intake and Output: Intake & Output 08/02/19 08/03/19 08/04/19 08/05/19 06:59 06:59 06:59 06:59 Intake Total 2036 0 Output Total 3800 Balance -1764 0 Weight 103 kg 103.1 kg Lab Results: Accuchecks Date 08/04/19 Date 08/04/19 Date 08/04/19 Date 08/03/19 Date 08/03/19 Date 08/03/19 Time 07:29 Time 04:00 Time 00:01 Time 20:00 Time 12:00 Time 12:00 Accucheck Value: 189 Accucheck Value: 213 Accucheck Value: 226 Accucheck Value: 300 Accucheck Value: 334 Accucheck Value: 334 Lab Results-Last 24 Hours 08/03/19 08/03/19 08/03/19 Range/Units 02:00 08:50 08:50 WBC 16.4 H (4.0-10.5) K/mm3 RBC 4.02 L (4.1-5.4) M/mm3 Hgb 12.2 (12.0-16.0) gm/dl Hct 37.9 (35-47) % MCV 94.3 (78-100) fl MCH 30.3 (26-32) pg MCHC 32.2 (32-36) g/dl RDW 14.8 H (11.5-14.0) % Plt Count 168 D (150-450) K/mm3 MPV 10.8 (7.5-11.0) fl Gran % 90.1 H (36.0-66.0) % Eos # (Auto) 0.01 (0-0.5) Absolute Lymphs (auto) 0.72 L (1.0-4.6) Absolute Monos (auto) 0.87 (0.0-1.3) Lymphocytes % 4.4 L (24.0-44.0) % Monocytes % 5.3 (0.0-12.0) % Eosinophils % 0.1 (0.00-5.0) % Basophils % 0.1 (0.0-0.4) % Absolute Granulocytes 14.83 H (1.4-6.9) Basophils # 0.01 (0-0.4) Sodium 139 (137-145) mmol/L Potassium 5.6 H (3.5-5.1) mmol/L Chloride 112 H (98-107) mmol/L Carbon Dioxide 18 L (22-30) mmol/L Anion Gap 14.5 (5-15) MEQ/L BUN 29 H (7-17) mg/dL Creatinine 1.34 H (0.52-1.04) mg/dL Estimated GFR 43.2 ML/MIN Glucose 295 H (74-106) mg/dL Hemoglobin A1c 6.84 H (4.5-6.0) % Calcium 8.3 L D (8.4-10.2) mg/dL Total Bilirubin (0.2-1.3) mg/dL AST (14-36) U/L ALT (0-35) U/L Alkaline Phosphatase (38-126) U/L Serum Total Protein (6.3-8.2) g/dL Albumin (3.5-5.0) g/dL Stool Occult Blood (Negative) Stl C. cayetanensis PCR (NEGATIVE) Stl Adenov F 40/41 PCR (NEGATIVE) Stool Astrovirus (PCR) (NEGATIVE) Stool Cryptosporidium PCR (NEGATIVE) Stool EPEC (PCR) (NEGATIVE) Stool EAEC (PCR) (NEGATIVE) Stl E. histolytica PCR (NEGATIVE) Stl P. shigelloides PCR (NEGATIVE) Stool Sapovirus (PCR) (NEGATIVE) St Y.enterocolitica PCR (NEGATIVE) Stool Vibrio (PCR) (NEGATIVE) Stl Vibrio cholerae PCR (NEGATIVE) Stl Norovirus GI/GII PCR (NEGATIVE) Campylobacter (PCR) (NEGATIVE) C. difficile Screen (NEGATIVE) C.difficile 027-NAP1-B1 (NEGATIVE) C. difficile (PCR) (NEGATIVE) Enterotoxigenic E. coli (NEGATIVE) E.coli Shiga Toxins (NEGATIVE) Giardia lamblia (NEGATIVE) Rotavirus A (PCR) (NEGATIVE) Salmonella (PCR) (NEGATIVE) Shigella (PCR) (NEGATIVE) 08/03/19 08/03/19 08/03/19 Range/Units 11:23 11:23 11:23 WBC (4.0-10.5) K/mm3 RBC (4.1-5.4) M/mm3 Hgb (12.0-16.0) gm/dl Hct (35-47) % MCV (78-100) fl MCH (26-32) pg MCHC (32-36) g/dl RDW (11.5-14.0) % Plt Count (150-450) K/mm3 MPV (7.5-11.0) fl Gran % (36.0-66.0) % Eos # (Auto) (0-0.5) Absolute Lymphs (auto) (1.0-4.6) Absolute Monos (auto) (0.0-1.3) Lymphocytes % (24.0-44.0) % Monocytes % (0.0-12.0) % Eosinophils % (0.00-5.0) % Basophils % (0.0-0.4) % Absolute Granulocytes (1.4-6.9) Basophils # (0-0.4) Sodium (137-145) mmol/L Potassium (3.5-5.1) mmol/L Chloride (98-107) mmol/L Carbon Dioxide (22-30) mmol/L Anion Gap (5-15) MEQ/L BUN (7-17) mg/dL Creatinine (0.52-1.04) mg/dL Estimated GFR ML/MIN Glucose (74-106) mg/dL Hemoglobin A1c (4.5-6.0) % Calcium (8.4-10.2) mg/dL Total Bilirubin (0.2-1.3) mg/dL AST (14-36) U/L ALT (0-35) U/L Alkaline Phosphatase (38-126) U/L Serum Total Protein (6.3-8.2) g/dL Albumin (3.5-5.0) g/dL Stool Occult Blood POSITIVE A (Negative) Stl C. cayetanensis PCR NEGATIVE (NEGATIVE) Stl Adenov F 40/41 PCR NEGATIVE (NEGATIVE) Stool Astrovirus (PCR) NEGATIVE (NEGATIVE) Stool Cryptosporidium PCR NEGATIVE (NEGATIVE) Stool EPEC (PCR) POSITIVE A (NEGATIVE) Stool EAEC (PCR) NEGATIVE (NEGATIVE) Stl E. histolytica PCR NEGATIVE (NEGATIVE) Stl P. shigelloides PCR NEGATIVE (NEGATIVE) Stool Sapovirus (PCR) NEGATIVE (NEGATIVE) St Y.enterocolitica PCR NEGATIVE (NEGATIVE) Stool Vibrio (PCR) NEGATIVE (NEGATIVE) Stl Vibrio cholerae PCR NEGATIVE (NEGATIVE) Stl Norovirus GI/GII PCR NEGATIVE (NEGATIVE) Campylobacter (PCR) NEGATIVE (NEGATIVE) C. difficile Screen NEGATIVE (NEGATIVE) C.difficile 027-NAP1-B1 PRESUMPTIVE NEGATIVE (NEGATIVE) C. difficile (PCR) NEGATIVE (NEGATIVE) Enterotoxigenic E. coli NEGATIVE (NEGATIVE) E.coli Shiga Toxins NEGATIVE (NEGATIVE) Giardia lamblia NEGATIVE (NEGATIVE) Rotavirus A (PCR) NEGATIVE (NEGATIVE) Salmonella (PCR) NEGATIVE (NEGATIVE) Shigella (PCR) NEGATIVE (NEGATIVE) 08/03/19 08/04/19 08/04/19 Range/Units 14:05 05:25 05:25 WBC 13.1 H (4.0-10.5) K/mm3 RBC 3.53 L (4.1-5.4) M/mm3 Hgb 10.7 L (12.0-16.0) gm/dl Hct 33.5 L (35-47) % MCV 94.9 (78-100) fl MCH 30.3 (26-32) pg MCHC 31.9 L (32-36) g/dl RDW 14.9 H (11.5-14.0) % Plt Count 157 (150-450) K/mm3 MPV 10.2 (7.5-11.0) fl Gran % 81.9 H (36.0-66.0) % Eos # (Auto) 0.02 (0-0.5) Absolute Lymphs (auto) 1.50 (1.0-4.6) Absolute Monos (auto) 0.84 (0.0-1.3) Lymphocytes % 11.5 L (24.0-44.0) % Monocytes % 6.4 (0.0-12.0) % Eosinophils % 0.2 (0.00-5.0) % Basophils % 0.0 (0.0-0.4) % Absolute Granulocytes 10.73 H (1.4-6.9) Basophils # 0 (0-0.4) Sodium 138 137 (137-145) mmol/L Potassium 4.5 3.9 (3.5-5.1) mmol/L Chloride 109 H 110 H (98-107) mmol/L Carbon Dioxide 18 L 22 (22-30) mmol/L Anion Gap 14.9 8.4 (5-15) MEQ/L BUN 28 H 18 H (7-17) mg/dL Creatinine 1.12 H 0.76 (0.52-1.04) mg/dL Estimated GFR 53.1 > 60.0 ML/MIN Glucose 330 H 209 H (74-106) mg/dL Hemoglobin A1c (4.5-6.0) % Calcium 7.8 L 7.7 L (8.4-10.2) mg/dL Total Bilirubin 0.50 (0.2-1.3) mg/dL AST 27 (14-36) U/L ALT 27 (0-35) U/L Alkaline Phosphatase 128 H (38-126) U/L Serum Total Protein 6.2 L (6.3-8.2) g/dL Albumin 3.2 L (3.5-5.0) g/dL Stool Occult Blood (Negative) Stl C. cayetanensis PCR (NEGATIVE) Stl Adenov F 40/41 PCR (NEGATIVE) Stool Astrovirus (PCR) (NEGATIVE) Stool Cryptosporidium PCR (NEGATIVE) Stool EPEC (PCR) (NEGATIVE) Stool EAEC (PCR) (NEGATIVE) Stl E. histolytica PCR (NEGATIVE) Stl P. shigelloides PCR (NEGATIVE) Stool Sapovirus (PCR) (NEGATIVE) St Y.enterocolitica PCR (NEGATIVE) Stool Vibrio (PCR) (NEGATIVE) Stl Vibrio cholerae PCR (NEGATIVE) Stl Norovirus GI/GII PCR (NEGATIVE) Campylobacter (PCR) (NEGATIVE) C. difficile Screen (NEGATIVE) C.difficile 027-NAP1-B1 (NEGATIVE) C. difficile (PCR) (NEGATIVE) Enterotoxigenic E. coli (NEGATIVE) E.coli Shiga Toxins (NEGATIVE) Giardia lamblia (NEGATIVE) Rotavirus A (PCR) (NEGATIVE) Salmonella (PCR) (NEGATIVE) Shigella (PCR) (NEGATIVE) Radiology Exams: Radiology Procedures Category Date Time Status ABDOMEN AND PELVIS W/0 CONTRAS [CT] Stat Exams 08/03/19 01:44 Completed CHEST 1 VIEW (PORTABLE) Stat Exams 08/03/19 02:07 Completed PULMONARY PERF VENTILATION [NUCMED] Stat Exams 08/03/19 05:59 Completed VENOUS BILATERAL EXTREMITY [US] Stat Exams 08/03/19 05:59 Completed Multi-Disciplinary Progress Notes: Multi-Disciplinary Progress Notes 08/03/19 09:50 Pharmacy Note by Keon Gonzalez THE CALCULATED CREATININE CLEARANCE FOR THIS PATIENT IS: 32 ML/MIN THE PATIENT IS ON THE FOLLOWING MEDICATIONS WHICH REQUIRED DOSE REDUCTIONS FOR DECREASED RENAL FUNCTION: LEVAQUIN 500 MG IVPB Q24H PER MEDICAL STAFF APPROVED PHARMACY PROTOCOL THE MEDICATION WILL BE REDUCED TO THE FOLLOWING DOSE: LEVAQUIN 250 MG IVPB Q24H THANK YOU MARITZA Initialized on 08/03/19 09:50 - END OF NOTE Assessment/Plan (1) Enteropathogenic Escherichia coli infection Current Visit: Yes Status: Acute Assessment & Plan: Stool PCR positive for this; as patient has been admitted for IV fluids and even acute renal failure related to this, will continue with levofloxacin at this time. Source is not known. Code(s): A04.0 - ENTEROPATHOGENIC ESCHERICHIA COLI INFECTION (2) Acute abdominal pain in left lower quadrant Current Visit: Yes Status: Acute Assessment & Plan: Continue with levofloxacin and metronidzole. She has been tender in left lower quadrant which is concerning for possible diverticulitis. Her stool was positive for E. coli infection. Will try to switch to oral pain medication. Code(s): R10.32 - LEFT LOWER QUADRANT PAIN (3) Diarrhea Current Visit: Yes Status: Acute Code(s): R19.7 - DIARRHEA, UNSPECIFIED (4) Acute renal failure Current Visit: Yes Status: Resolved Assessment & Plan: Resolved with IV fluids. (5) Elevated d-dimer Current Visit: Yes Status: Acute Assessment & Plan: VQ scan and dopplers of LE neg for clots. Code(s): R79.89 - OTHER SPECIFIED ABNORMAL FINDINGS OF BLOOD CHEMISTRY (6) Diabetes type 2, controlled Current Visit: Yes Status: Acute Qualifiers: Diabetes mellitus halfway insulin use: with halfway use Assessment & Plan: Patient usually uses insulin pump. Started on lantus yesterday; will start novolog with meals today. Code(s): E11.9 - TYPE 2 DIABETES MELLITUS WITHOUT COMPLICATIONS (7) Leukocytosis Current Visit: Yes Status: Acute Assessment & Plan: Improving with antibiotics/treatment/control of nausea. Code(s): D72.829 - ELEVATED WHITE BLOOD CELL COUNT, UNSPECIFIED (8) History of coronary artery disease Current Visit: Yes Status: Acute Assessment & Plan: Will restart aspirin 81 mg and plavix today; will continue to hold guanaco inhibitor. Patient is on beta yves. Code(s): Z86.79 - PERSONAL HISTORY OF OTHER DISEASES OF THE CIRCULATORY SYSTEM (9) Bipolar disorder Current Visit: Yes Status: Acute Assessment & Plan: Continue home medication. Code(s): F31.9 - BIPOLAR DISORDER, UNSPECIFIED
[2019-08-04] MEDS: PLAVIX 75 MG Tablet PO SCH (09:29)
[2019-08-04] MEDS: ECOTRIN 81 MG PO SCH (09:29)
[2019-08-04] MEDS ORDERED: NON-FORMULARY ITEM (Atorvastatin Calcium 20 MG) PO SCH (10:00)
[2019-08-04] MEDS: NORCO 5/325 MG PO PRN ×3 (14:02→22:37)
[2019-08-04] MEDS: NovoLOG Insulin SQ SCH (16:01)
[2019-08-04] MEDS: ZOCOR 20MG PO SCH (21:21)
[2019-08-05] MEDS: Sodium Chloride 0.9% 1000 ML 1,000 ML IV SCH ×2 (02:22→16:33)
[2019-08-05] MEDS: SUBLIMAZE 100 MCG/2 ML IV PRN (02:36)
[2019-08-05] MEDS: FLAGYL 500 MG IVPB 500 MG/100 ML BAG IV SCH ×4 (05:11→23:07)
[2019-08-05 05:13] LABS: Absolute Neutrophil Ct (ANC) 10.11 (1.4-6.9); BASOPHIL % 0.1 % (0.0-0.4); Basophil (Absolute #) 0.01 (0-0.4); Eosinophil % 1.1 % (0.00-5.0); Eosinophil (Absolute #) 0.14 (0-0.5); Hematocrit 33.2 % (35-47); Hemoglobin 10.6 gm/dl (12.0-16.0); Lymphocyte (Absolute #) 1.61 (1.0-4.6); Lymphocytes % 12.8 % (24.0-44.0); Mean Cell Volume 95.7 fl (78-100); Mean Corpuscular Hemoglobin 30.5 pg (26-32); Mean Corpuscular Hgb Concent. 31.9 g/dl (32-36); Monocyte (Absolute #) 0.72 (0.0-1.3); Monocytes % 5.7 % (0.0-12.0); Neutrophil % 80.3 % (36.0-66.0); Platelet Count 148 K/mm3 (150-450); Red Blood Count 3.47 M/mm3 (4.1-5.4); White Blood Count 12.6 K/mm3 (4.0-10.5)
[2019-08-05 05:18] LABS: ANION GAP 8.2 MEQ/L (5-15); BLOOD UREA NITROGEN 10 mg/dL (7-17); CHLORIDE 110 mmol/L (98-107); Carbon Dioxide 23 mmol/L (22-30); Creatinine 1 0.65 mg/dL (0.52-1.04); Glucose 180 mg/dL (74-106); Potassium 4.3 mmol/L (3.5-5.1); SODIUM 137 mmol/L (137-145)
[2019-08-05] MEDS: Levofloxacin 500MG/100ML D5W 500 MG/100 ML BAG IV SCH (05:45)
[2019-08-05] MEDS: NORCO 5/325 MG PO PRN ×5 (06:15→23:03)
[2019-08-05] MEDS: NovoLOG Insulin SQ SCH ×3 (08:06→16:37)
[2019-08-05] MEDS: PLAVIX 75 MG Tablet PO SCH (09:51)
[2019-08-05] MEDS: ECOTRIN 81 MG PO SCH (09:51)
[2019-08-05] MEDS: Wellbutrin SR 150 MG PO SCH (09:51)
[2019-08-05] MEDS: Imdur 60MG PO SCH (09:51)
[2019-08-05] MEDS: lamICTAL 100MG TABLET PO SCH (09:52)
[2019-08-05] MEDS: Effexor XR 75 MG PO SCH (09:52)
[2019-08-05] MEDS: Coreg 6.25 MG PO SCH ×2 (09:52→23:02)
[2019-08-05] MEDS: PROTONIX 40 MG IV IV SCH (09:52)
[2019-08-05] MEDS: NovoLOG Insulin SQ PRN ×3 (12:08→23:02)
--- NOTE | 2019-08-05 12:48 | PCM.NOTE ---
Date and Time: 08/05/19 1242 Subjective Assessment: 59 yr old female seen and examined this am. Patient is doing better since admission but her left lower abdomen pain is the same. Patient reports she is tolerating the liquid diet she is on. Patient reports that she is tolerating PO pain medication. She has been noticing some "coffee ground" type stools. Patient denies vomiting since admission. She has not had the volume of diarrhea like she had when she was in the ER. Patient had no other reported concerns at this time. - Review of Systems Constitutional: No Fever Eyes: No Symptoms Ears, Nose, & Throat: No Symptoms Respiratory: No Cough, No Short Of Breath Cardiac: No Chest Pain, No Edema Abdominal/Gastrointestinal: Abdominal Pain, Nausea, Diarrhea (Coffee ground appearance), Constipation (Hx of constipation), No Vomiting Genitourinary Symptoms: Urinary Retention (Patient was reporting being put on water pill for increased urine output), Other (Patient reports she had a hysterectomy and that she thinks she has a left sided ovary remaining), No Dysuria, No Frequency Musculoskeletal: Arthralgias (knee pain) Skin: No Rash Neurological: No Dizziness Objective Exam General Appearance: mild distress Neurologic Exam: alert, oriented x 3, cooperative, normal mood/affect Skin Exam: normal color, warm, dry, No rash Eye Exam: eyes nml inspection Ears, Nose, Throat Exam: moist mucous membranes Neck Exam: normal inspection Respiratory Exam: normal breath sounds, lungs clear, No respiratory distress, No diminished breath sounds, No crackles/rales, No wheezing Cardiovascular Exam: regular rate/rhythm, normal heart sounds, No murmur, No friction rub Gastrointestinal/Abdomen Exam: soft, normal bowel sounds, tenderness, rebound ( Left lower quadrant), No guarding Extremity Exam: normal inspection OBJECTIVE DATA Vital Signs: Vital Signs - 24 hr Temp Pulse Resp BP Pulse Ox 08/05/19 12:00 97.6 F 68 18 132/52 97 08/05/19 08:00 98.4 F 60 17 143/63 94 L 08/05/19 04:00 98.5 F 89 20 151/66 94 L 08/04/19 23:53 98.3 F 83 18 122/59 94 L 08/04/19 20:07 99.3 F 106 H 20 109/55 94 L 08/04/19 16:16 98 F 78 20 161/71 97 Pain Assessment - Last Documented Pain Intensity 9 Pain Scale Used 0-10 Pain Scale Intake and Output: Intake & Output 08/03/19 08/04/19 08/05/19 08/06/19 11:59 11:59 11:59 11:59 Intake Total 2276 3778 Output Total 762 7180 2150 Balance -800 -1374 1628 Weight 103 kg 103.1 kg Lab Results: Accuchecks Date 08/05/19 Date 08/05/19 Date 08/04/19 Date 08/04/19 Time 12:13 Time 07:30 Time 21:00 Time 11:57 Accucheck Value: 238 Accucheck Value: 204 Accucheck Value: 240 Lab Results-Last 24 Hours 08/05/19 08/05/19 Range/Units 05:06 05:06 WBC 12.6 H (4.0-10.5) K/mm3 RBC 3.47 L (4.1-5.4) M/mm3 Hgb 10.6 L (12.0-16.0) gm/dl Hct 33.2 L (35-47) % MCV 95.7 (78-100) fl MCH 30.5 (26-32) pg MCHC 31.9 L (32-36) g/dl RDW 15.0 H (11.5-14.0) % Plt Count 148 L (150-450) K/mm3 MPV 11.0 (7.5-11.0) fl Gran % 80.3 H (36.0-66.0) % Eos # (Auto) 0.14 (0-0.5) Absolute Lymphs (auto) 1.61 (1.0-4.6) Absolute Monos (auto) 0.72 (0.0-1.3) Lymphocytes % 12.8 L (24.0-44.0) % Monocytes % 5.7 (0.0-12.0) % Eosinophils % 1.1 (0.00-5.0) % Basophils % 0.1 (0.0-0.4) % Absolute Granulocytes 10.11 H (1.4-6.9) Basophils # 0.01 (0-0.4) Sodium 137 (137-145) mmol/L Potassium 4.3 (3.5-5.1) mmol/L Chloride 110 H (98-107) mmol/L Carbon Dioxide 23 (22-30) mmol/L Anion Gap 8.2 (5-15) MEQ/L BUN 10 (7-17) mg/dL Creatinine 0.65 (0.52-1.04) mg/dL Estimated GFR > 60.0 ML/MIN Glucose 180 H (74-106) mg/dL Calcium 8.0 L (8.4-10.2) mg/dL Assessment/Plan (1) Acute abdominal pain in left lower quadrant Current Visit: Yes Status: Acute Assessment & Plan: Patient is having significant left lower quadrant pain. Patient's previous CT appears to have been without contrast. She is reporting some coffee ground stools and has rebounding on exam. Patient could have underlying diverticular disease, colitis or some other pathology. Patient has PO pain medication on board at this time. Will continue to monitor for worsening pain. Code(s): R10.32 - LEFT LOWER QUADRANT PAIN (2) Diabetes type 2, controlled Current Visit: Yes Status: Acute Qualifiers: Diabetes mellitus hand twister insulin use: with hand twister use Code(s): E11.9 - TYPE 2 DIABETES MELLITUS WITHOUT COMPLICATIONS (3) Diarrhea Current Visit: Yes Status: Acute Assessment & Plan: Patient has had decreased diarrhea but she describes her stool as coffee ground appearance. Cdiff was neg. Occult blood and EPEC positive which can cause bloody diarrhea. Will get repeat CT with contrast for further evaluation Code(s): R19.7 - DIARRHEA, UNSPECIFIED (4) Enteropathogenic Escherichia coli infection Current Visit: Yes Status: Acute Assessment & Plan: Patient is currently on antibiotic tx for this. Will continue on antibiotic to complete course. Code(s): A04.0 - ENTEROPATHOGENIC ESCHERICHIA COLI INFECTION (5) Acute renal failure Current Visit: Yes Status: Resolved Assessment & Plan: This is resolved. We will be getting CT with contrast so will follow up on patient' kidney function after study is performed with repeat labs in am. (6) Bipolar disorder Current Visit: Yes Status: Acute Assessment & Plan: Will continue with routine home medications. Code(s): F31.9 - BIPOLAR DISORDER, UNSPECIFIED (7) Vomiting Current Visit: Yes Status: Acute Assessment & Plan: Resolved but patient is on zofran for nausea and is on a liquid diet at this time. Patient does not want to progress diet at this time because she does not want to have more vomiting. Code(s): R11.10 - VOMITING, UNSPECIFIED
--- NOTE | 2019-08-05 18:00 | XRAY ---
Indication: Left lower quadrant pain. Nausea and vomiting. Multiple contiguous axial images obtained through the abdomen and pelvis using 80 cc Isovue-370 contrast only. Comparison: August 03, 2019. Lung bases again demonstrates minimal bilateral dependent atelectasis without infiltrate or effusion. Heart is not enlarged. Stable hiatal hernia with partial intrathoracic stomach. Noncontrasted stomach and bowel loops appear nonobstructed. Again appendectomy, hysterectomy, and cholecystectomy. Descending colon and proximal sigmoid now demonstrates circumferential wall thickening with mild pericolonic stranding favoring colitis. Small pelvic free fluid presumed reactive. No walled off fluid collection or free air. Stable nonobstructing left renal punctate calculus. Plunkett catheter has been removed in the interim. Remaining liver, pancreas, spleen, adrenal glands, kidneys, ureters, and bladder appear unremarkable. Stable minimal aortic calcifications without AAA. No pathologic retroperitoneal lymphadenopathy. Osseous structures intact again with L5-S1 posterior fusion surgery. Impression: 1. New descending and proximal sigmoid colitis. Small pelvic free fluid but no walled off fluid collection or free air. 2. Stable hiatal hernia, nonobstructing left renal micro-calculus, and chronic bony findings. Comment: Preliminary interpretation was made by [facility]. No critical discrepancy.
[2019-08-05] MEDS: ZOCOR 20MG PO SCH (23:02)
[2019-08-06] MEDS: Sodium Chloride 0.9% 1000 ML 1,000 ML IV SCH ×3 (03:12→15:33)
[2019-08-06] MEDS: NORCO 5/325 MG PO PRN ×5 (03:24→20:18)
[2019-08-06 05:05] LABS: Absolute Neutrophil Ct (ANC) 5.91 (1.4-6.9); BASOPHIL % 0.2 % (0.0-0.4); Basophil (Absolute #) 0.02 (0-0.4); Eosinophil % 3.4 % (0.00-5.0); Eosinophil (Absolute #) 0.28 (0-0.5); Hematocrit 29.9 % (35-47); Hemoglobin 9.5 gm/dl (12.0-16.0); Lymphocyte (Absolute #) 1.34 (1.0-4.6); Lymphocytes % 16.5 % (24.0-44.0); Mean Cell Volume 96.5 fl (78-100); Mean Corpuscular Hemoglobin 30.6 pg (26-32); Mean Corpuscular Hgb Concent. 31.8 g/dl (32-36); Mean Platelet Volume 10.8 fl (7.5-11.0); Monocyte (Absolute #) 0.57 (0.0-1.3); Neutrophil % 72.9 % (36.0-66.0); Platelet Count 147 K/mm3 (150-450); Red Cell Distribution Width 14.9 % (11.5-14.0); White Blood Count 8.1 K/mm3 (4.0-10.5)
[2019-08-06 05:13] LABS: BLOOD UREA NITROGEN 6 mg/dL (7-17); CHLORIDE 113 mmol/L (98-107); Calcium 7.9 mg/dL (8.4-10.2); Carbon Dioxide 24 mmol/L (22-30); Creatinine 1 0.62 mg/dL (0.52-1.04); Glucose 175 mg/dL (74-106); Potassium 3.9 mmol/L (3.5-5.1); SODIUM 139 mmol/L (137-145)
[2019-08-06] MEDS: FLAGYL 500 MG IVPB 500 MG/100 ML BAG IV SCH ×4 (05:38→23:11)
[2019-08-06] MEDS: Levofloxacin 500MG/100ML D5W 500 MG/100 ML BAG IV SCH (06:29)
[2019-08-06] MEDS: NovoLOG Insulin SQ SCH ×3 (08:03→16:20)
[2019-08-06] MEDS: Effexor XR 75 MG PO SCH (09:35)
[2019-08-06] MEDS: PLAVIX 75 MG Tablet PO SCH (09:35)
[2019-08-06] MEDS: Imdur 60MG PO SCH (09:36)
[2019-08-06] MEDS: Coreg 6.25 MG PO SCH ×2 (09:36→21:29)
[2019-08-06] MEDS: Wellbutrin SR 150 MG PO SCH (09:36)
[2019-08-06] MEDS: ECOTRIN 81 MG PO SCH (09:36)
[2019-08-06] MEDS: lamICTAL 100MG TABLET PO SCH (09:36)
[2019-08-06] MEDS: PROTONIX 40 MG IV IV SCH (09:36)
[2019-08-06] MEDS: NovoLOG Insulin SQ PRN ×3 (11:57→21:29)
--- NOTE | 2019-08-06 17:26 | PCM.NOTE ---
Date and Time: 08/06/19 1720 Subjective Assessment: 59 yr old female seen and examined this am. Patient reports that she is doing better this am. She has not had anymore episodes of vomiting. No other reported episodes of coffee ground stool. Patient reports her abdominal pain has improved. She gets frustrated when her family speaks for her and reports that everyone told her that she was having the symptoms she was having due to low blood sugar. No family present this am at bedside so patient was able to speak freely. She reports that she would like to try to progress her diet today since she has been tolerating the liquid diet without issue. - Review of Systems Constitutional: No Fever Eyes: No Symptoms Ears, Nose, & Throat: No Symptoms Respiratory: No Cough, No Short Of Breath, No Wheezing Cardiac: No Chest Pain, No Edema Abdominal/Gastrointestinal: Abdominal Pain (Patient reports that during my exam she would not have been able to tolerate me pushing on her left side but today she states it is not as tender with palpation), No Nausea, No Vomiting, No Diarrhea, No Constipation Genitourinary Symptoms: No Dysuria Musculoskeletal: Other (knee pain chronic in nature) Skin: No Rash Neurological: Headache (hx of headaches), No Dizziness Psychological: Anxiety Objective Exam General Appearance: no apparent distress, alert, obese, other (Patient was resting comfortably on exam. NAD) Neurologic Exam: alert, oriented x 3, cooperative, normal mood/affect Skin Exam: normal color, warm, dry, No rash Eye Exam: eyes nml inspection, No scleral icterus Ears, Nose, Throat Exam: moist mucous membranes Neck Exam: normal inspection Respiratory Exam: normal breath sounds, lungs clear, No respiratory distress, No diminished breath sounds, No crackles/rales Cardiovascular Exam: regular rate/rhythm, normal heart sounds, No murmur, No friction rub, No gallop Gastrointestinal/Abdomen Exam: soft, normal bowel sounds, No tenderness, No distention, No guarding, No rebound Extremity Exam: No pedal edema, No swelling Pelvic Exam: deferred Rectal Exam: deferred OBJECTIVE DATA Vital Signs: Vital Signs - 24 hr Temp Pulse Resp BP Pulse Ox 08/06/19 16:00 98.1 F 100 H 20 147/79 95 08/06/19 12:00 98.1 F 65 18 144/60 94 L 08/06/19 07:24 98.3 F 75 18 127/58 94 L 08/06/19 04:00 97.7 F 67 22 132/62 97 08/05/19 23:49 98.3 F 78 22 127/61 95 08/05/19 20:00 98.4 F 73 20 114/54 96 Pain Assessment - Last Documented Pain Intensity 5 Pain Scale Used 0-10 Pain Scale Intake and Output: Intake & Output 08/04/19 08/05/19 08/06/19 08/07/19 11:59 11:59 11:59 11:59 Intake Total 2276 3778 3839 120 Output Total 3650 2150 1000 Balance -1374 1628 2839 120 Weight 103.1 kg 105 kg 102.7 kg Lab Results: Accuchecks Accucheck Value: 209 Accucheck Value: 282 Lab Results-Last 24 Hours 08/06/19 08/06/19 Range/Units 05:01 05:01 WBC 8.1 (4.0-10.5) K/mm3 RBC 3.10 L (4.1-5.4) M/mm3 Hgb 9.5 L (12.0-16.0) gm/dl Hct 29.9 L (35-47) % MCV 96.5 (78-100) fl MCH 30.6 (26-32) pg MCHC 31.8 L (32-36) g/dl RDW 14.9 H (11.5-14.0) % Plt Count 147 L (150-450) K/mm3 MPV 10.8 (7.5-11.0) fl Gran % 72.9 H (36.0-66.0) % Eos # (Auto) 0.28 (0-0.5) Absolute Lymphs (auto) 1.34 (1.0-4.6) Absolute Monos (auto) 0.57 (0.0-1.3) Lymphocytes % 16.5 L (24.0-44.0) % Monocytes % 7.0 (0.0-12.0) % Eosinophils % 3.4 (0.00-5.0) % Basophils % 0.2 (0.0-0.4) % Absolute Granulocytes 5.91 (1.4-6.9) Basophils # 0.02 (0-0.4) Sodium 139 (137-145) mmol/L Potassium 3.9 (3.5-5.1) mmol/L Chloride 113 H (98-107) mmol/L Carbon Dioxide 24 (22-30) mmol/L Anion Gap 6.0 (5-15) MEQ/L BUN 6 L (7-17) mg/dL Creatinine 0.62 (0.52-1.04) mg/dL Estimated GFR > 60.0 ML/MIN Glucose 175 H (74-106) mg/dL Calcium 7.9 L (8.4-10.2) mg/dL Radiology Exams: Radiology Procedures Category Date Time Status ABDOMEN AND PELVIS W CONTRAST [CT] Urgent Exams 08/05/19 12:54 Completed Multi-Disciplinary Progress Notes: Multi-Disciplinary Progress Notes 08/06/19 08:44 Pharmacy Note by Buck Le Day 4 of IV Levaquin and Flagyl. Recommend changing to oral when able. Initialized on 08/06/19 08:44 - END OF NOTE Assessment/Plan (1) Acute abdominal pain in left lower quadrant Current Visit: Yes Status: Acute Assessment & Plan: Improving. Patient had rebounding on exam yesterday. Repeat CT with contrast showed bowel wall thickening in the left lower quadrant likely colitis. Nurse reported that Dr Camacho contacted her and he told the repeat CT results and wanted patient to be managed medically and he would evaluate patient on wednesday. Progressed patients diet to soft diet. Code(s): R10.32 - LEFT LOWER QUADRANT PAIN (2) Diabetes type 2, controlled Current Visit: Yes Status: Acute Qualifiers: Diabetes mellitus assisted insulin use: with assisted use Assessment & Plan: Patient has insulin pump and manages her BS regularly Code(s): E11.9 - TYPE 2 DIABETES MELLITUS WITHOUT COMPLICATIONS (3) Diarrhea Current Visit: Yes Status: Acute Assessment & Plan: Resolving. Patient will likely need colonoscopy and EGD. She is being treated for EPEC and will likely need to heal more before colonoscopy is performed. Code(s): R19.7 - DIARRHEA, UNSPECIFIED (4) Enteropathogenic Escherichia coli infection Current Visit: Yes Status: Acute Assessment & Plan: Patient continues to antibiotic for EPEC. She has developed colitis but her pain and symptoms are improving. Afebrile and WBC improved. Code(s): A04.0 - ENTEROPATHOGENIC ESCHERICHIA COLI INFECTION (5) Acute renal failure Current Visit: Yes Status: Resolved Assessment & Plan: Resolved. Unsure if Dr Richardson who was consulted has seen patient. Will continue with current therapy. (6) Bipolar disorder Current Visit: Yes Status: Acute Assessment & Plan: Patient will continue with home meds Code(s): F31.9 - BIPOLAR DISORDER, UNSPECIFIED (7) Vomiting Current Visit: Yes Status: Acute Assessment & Plan: Resolved. Patient has been tolerating PO liquid diet and no more episodes of vomiting. We are going to progress her diet to soft diet as she is currently is not complaining of abdominal pain. If vomiting starts again will resume liquid diet Code(s): R11.10 - VOMITING, UNSPECIFIED
[2019-08-06] MEDS: Zofran 4 MG/2 ML VIAL IV PRN (19:44)
[2019-08-06] MEDS: ZOCOR 20MG PO SCH (21:29)
[2019-08-07] MEDS: NORCO 5/325 MG PO PRN ×3 (00:19→10:06)
[2019-08-07] MEDS: Sodium Chloride 0.9% 1000 ML 1,000 ML IV SCH (04:30)
[2019-08-07 04:59] LABS: Hemoglobin 9.7 gm/dl (12.0-16.0); Mean Cell Volume 95.5 fl (78-100); Mean Corpuscular Hemoglobin 30.9 pg (26-32); Mean Corpuscular Hgb Concent. 32.3 g/dl (32-36); Mean Platelet Volume 10.8 fl (7.5-11.0); Platelet Count 162 K/mm3 (150-450); Red Blood Count 3.14 M/mm3 (4.1-5.4); Red Cell Distribution Width 15.1 % (11.5-14.0); White Blood Count 7.2 K/mm3 (4.0-10.5)
[2019-08-07 05:02] LABS: ANION GAP 7.9 MEQ/L (5-15); BLOOD UREA NITROGEN 6 mg/dL (7-17); CHLORIDE 115 mmol/L (98-107); Calcium 8.3 mg/dL (8.4-10.2); Carbon Dioxide 22 mmol/L (22-30); Creatinine 1 0.59 mg/dL (0.52-1.04); Glucose 175 mg/dL (74-106); Potassium 3.8 mmol/L (3.5-5.1); SODIUM 141 mmol/L (137-145)
[2019-08-07] MEDS: FLAGYL 500 MG IVPB 500 MG/100 ML BAG IV SCH (05:32)
[2019-08-07 06:06] LABS: Basophil 1 % (0.0-1.0); Eosinophil 1 % (0.00-3.0); Lymphocytes 18 % (24-44); Monocyte 11 % (0.0-12.0); Neutrophils 69 % (36.0-66.0); Total Cells Counted 100
[2019-08-07 06:07] LABS: Platelet Estimate NORMAL (NORMAL)
[2019-08-07] MEDS: Levofloxacin 500MG/100ML D5W 500 MG/100 ML BAG IV SCH (06:34)
[2019-08-07 07:52] VITALS: BP 102/52; PULSE 70; O2SAT 97
[2019-08-07] MEDS ORDERED: Lantus Insulin SQ SCH (08:00)
[2019-08-07] MEDS: NovoLOG Insulin SQ SCH (08:30)
[2019-08-07] MEDS: lamICTAL 100MG TABLET PO SCH (08:31)
[2019-08-07] MEDS: ECOTRIN 81 MG PO SCH (08:31)
[2019-08-07] MEDS: Wellbutrin SR 150 MG PO SCH (08:32)
[2019-08-07] MEDS: Coreg 6.25 MG PO SCH (08:32)
[2019-08-07] MEDS: Effexor XR 75 MG PO SCH (08:32)
[2019-08-07] MEDS: Imdur 60MG PO SCH (08:32)
[2019-08-07] MEDS: PROTONIX 40 MG IV IV SCH (08:33)
[2019-08-07] MEDS: PLAVIX 75 MG Tablet PO SCH (08:33)
--- NOTE | 2019-08-07 08:43 | PCM.DCORD ---
- Discharge Discharge Date: 08/07/19 Disposition: Home, Self-Care Condition: Fair Prescriptions: New Docusate Sodium 100 mg [Colace 100 MG] 100 mg PO BID #60 cap Metronidazole 500 mg [Flagyl 500 MG] 500 mg PO QID #12 tablet Insulin Lispro [Humalog Kwikpen U-100] 4 unit SQ TID #1 insuln.pen Hydrocodone/Acetaminophen [Hydrocodone-Acetamin 5-325 mg] 1 each PO Q4H PRN # 30 tablet MDD 6 PRN Reason: Pain Insulin Glargine,Hum.rec.anlog [Lantus Solostar] 10 unit SQ DAILY #1 pen Levofloxacin [Levofloxacin 500 MG Tablet] 500 mg PO DAILY #3 tablet Continue Isosorbide Mononitrate 60 mg [Imdur 60MG] 60 mg PO DAILY lamoTRIgine [Lamotrigine] 100 mg PO DAILY Venlafaxine HCl [Effexor Xr] 150 mg PO DAILY Clonazepam 1 mg PO TID Alendronate Sodium 70 mg PO WEEKLY Amlodipine Besylate 2.5 mg PO DAILY Ergocalciferol (Vitamin D2) [Vitamin D] 50,000 unit PO DAILY Atorvastatin Calcium [Lipitor 20MG Tablet] 20 mg PO DAILY carvediloL [Carvedilol] 6.25 mg PO BID Clopidogrel Bisulfate [Clopidogrel] 75 mg PO DAILY Nitroglycerin [Nitrostat] 0.4 mg SL UD buPROPion HCl [Bupropion HCl Sr] 150 mg PO DAILY Pantoprazole 20 mg [Protonix 20MG Tablet] 20 mg PO DAILY Aspirin EC 81 mg [Ecotrin 81 mg] 81 mg PO DAILY Discontinued lisinopriL [Lisinopril] 10 mg PO BID Insulin Regular, Human [Humulin R U-500 Kwikpen] 500 unit SQ UD Potassium Chloride 10 Meq Tab* [Klor Con 10 MEQ] 20 meq PO DAILY Furosemide 40 mg [Lasix 40 MG] 40 mg PO DAILY Additional Instructions: Return to ER for chest pain, trouble breathing, lightheadedness, dizziness, abdominal pain not controlled with your pain medication or any other concern. Follow up with: DORINA CERRATO MD [Primary Care Provider] - 08/15/19 10:00 am FREDO HERRERA [ACTIVE STAFF] - 1 Week
--- NOTE | 2019-08-09 08:29 | DS ---
DISCHARGE DIAGNOSES: 1) ENTEROPATHOGENIC ESCHERICHIA COLI INFECTION. 2) ABDOMINAL PAIN IN THE LEFT LOWER QUADRANT WITH COLITIS. 3) DIARRHEA. 4) ACUTE RENAL FAILURE NOW RESOLVED. 5) ELEVATED D-DIMER. 6) DIABETES MELLITUS TYPE 2 CONTROLLED. 7) HISTORY OF CORONARY ARTERY DISEASE. 8) BIPOLAR DISORDER. DISCHARGE PHYSICAL EXAMINATION: VITALS: Temperature current 98F, heart rate 70, respiratory rate 18, blood pressure 102/52. Oxygen saturation 97 % on room air. GENERAL: The patient is a pleasant talkative lady lying in bed in no acute distress. CVS: She had a regular rate and rhythm. No murmurs, gallops or rubs were appreciated. CHEST: Clear to auscultation bilaterally. No crackles or wheezes. ABDOMEN: Soft with mild left lower quadrant tenderness. No guarding. No rigidity. EXTREMITIES: No clubbing, cyanosis or edema. SKIN: Warm, dry and intact. HOSPITAL COURSE: 1) ENTEROPATHOGENIC ESCHERICHIA COLI INFECTION: She had a GI panel that came back positive for this. Since she had some acute renal failure, diarrhea, dehydration with this, she had already been started on metronidazole and levofloxacin and will plan to finish an oral course of this at home. She was tolerating food well and able to keep down oral medications. The general surgeon saw her too and did not feel like there was any surgical indication during her hospitalization. She had two separate CT scans that both showed findings consistent with colitis. The general surgeons want to do a colonoscopy in about six weeks. 2) ABDOMINAL PAIN IN THE LEFT LOWER QUADRANT DUE TO COLITIS: She was given IV pain medicine which was switched to oral pain medicine. I gave her a short supply of this. She is to follow up closely with her primary care doctor in [place]. 3) DIARRHEA: Again, this is probably most likely due to the enteropathogenic Escherichia coli. Treatment as above. 4) ACUTE RENAL FAILURE NOW RESOLVED: She has mild hyperkalemia a well an elevated creatinine, this resolved with IV fluids. A fancy packer was consulted but did not see her during her hospitalization. 5) ELEVATED D-DIMER: She was not anticoagulated due to already being on aspirin and Plavix. VQ scan was negative and Doppler's of the lower extremities were negative. 6) DIABETES MELLITUS TYPE 2 CONTROLLED: She uses an insulin pump at home but has no idea how much insulin she normally takes at home so she was given Lantus and NovoLog with meals. Her insulin pump was discontinued. At the time of discharge she still did not know how much total insulin she usually takes in a day and she had some concern for hypoglycemia before her admission so I discharged her on Lantus and Humalog with her meals. She was agreeable to this. She can follow up with her primary care doctor and/or stylist assistant. 7) HISTORY OF CORONARY ARTERY DISEASE: She was continued on aspirin and Plavix. Her DONATO inhibitor was held during her hospitalization. She was continued on the beta yves. 8) BIPOLAR DISORDER: She was continued on her medication. DISCHARGE MEDICATIONS: Please see the discharge order. FOLLOW UP: She is also to follow up with the general surgeon concerning the colonoscopy in approximately six weeks. DISPOSITION: She was discharged to home in fair condition to follow up closely with her primary care doctor, Dr. Leeann Bush in [place].
== END 2019-08-07 11:15 | disposition home or self-care (01) | DRG 372 ==
LOC: ED 01:39 → MED SURG 05:54 → OBSVTOIN 09:09 → MED SURG 09:10
PROVIDERS: ADMIT Internal Medicine; ATTEND Internal Medicine
DX: A04.0 Enteropathogenic Escherichia coli infection (principal); N17.9 Acute kidney failure, unspecified; K52.9 Noninfective gastroenteritis and colitis, unspecified; R79.89 Other specified abnormal findings of blood chemistry; E11.9 Type 2 diabetes mellitus without complications; I25.10 Atherosclerotic heart disease of native coronary artery without angina pectoris; F31.9 Bipolar disorder, unspecified; R10.32 Left lower quadrant pain; Z79.899 Other long term (current) drug therapy
CPT/HCPCS: 36000; 36415; 71045; 74176; 74177; 78582; 80048; 80053; 81001; 82150; 82272; 82962; 83036; 83605; 83690; 83735; 83880; 84443; 84484; 85025; 85379; 87040; 87045; 87046; 87086; 87335; 87493; 87507; 93005; 93268; 93970; 94762; 96360; 96361; 96365; 96367; 96374; 96375; 96376; 99285; 99291; A9540; A9567; G0378; J1956; J2060; J2270; J2405; J3010; Q9967; A9270-GY

== ENCOUNTER 2023-06-23 07:10 | Day surgery (SDC) | payer MEDICARE ==
[2023-06-23] MEDS ORDERED: LIDOCAINE HCL 2% 100 MG/5 ML IJ ONE (07:11)
[2023-06-23] MEDS ORDERED: DIPRIVAN 200 MG/20 ML IV ONE (08:58)
[2023-06-23] MEDS ORDERED: MORPHINE SULFATE 2 MG INJ ONE (09:21)
--- NOTE | 2023-06-23 10:01 | XRAY ---
Indication: Bilateral L4-S1 MBB. Intraoperative fluoroscopy provided for 1 minute 15 seconds. 2 digital spot images submitted for interpretation demonstrates posterior needle tips projecting over the expected left and right L4-S1 nerve roots. Correlate with intraoperative findings/report. Incidental bilateral L5-S1 fusion hardware.
--- NOTE | 2023-06-23 10:03 | XRAY ---
One minute and 15 seconds of fluoroscopy was used in surgery for a bilateral L4-S1 MBB.
[2023-06-23] MEDS ORDERED: Lactated Ringers 1,000 ML IV ONE (10:41)
== END 2023-06-23 09:45 | disposition home or self-care (01) ==
LOC: SDC-PAIN 07:10
PROVIDERS: ATTEND Psychiatry & Neurology Pain Medicine
DX: M47.816 Spondylosis without myelopathy or radiculopathy, lumbar region (principal); E11.9 Type 2 diabetes mellitus without complications
CPT/HCPCS: 64493; 64494; 72020; 77002; 82947; J2270; J2704

== ENCOUNTER 2023-09-22 11:25 | Day surgery (SDC) | payer MEDICARE ==
[2023-09-22] MEDS ORDERED: BUPIVACAINE 0.5% VIAL IJ ONE (11:26)
[2023-09-22] MEDS ORDERED: Depo-Medrol 40 MG/ML IM ONE (11:26)
[2023-09-22] MEDS ORDERED: Lactated Ringers 1,000 ML IV ONE (12:26)
[2023-09-22] MEDS ORDERED: DIPRIVAN 200 MG/20 ML IV ONE (12:50)
== END 2023-09-22 13:21 | disposition home or self-care (01) ==
LOC: SDC-PAIN 11:25
PROVIDERS: ATTEND Psychiatry & Neurology Pain Medicine
DX: M46.1 Sacroiliitis, not elsewhere classified (principal); E11.9 Type 2 diabetes mellitus without complications
CPT/HCPCS: 01992; 27096; 82947; G0260; J1010; J2704; Q9966; J1030

== ENCOUNTER 2023-12-29 09:42 | Day surgery (SDC) | payer MEDICARE ==
[2023-12-29] MEDS ORDERED: DIPRIVAN 200 MG/20 ML IV ONE (11:31)
[2023-12-29] MEDS ORDERED: Lactated Ringers 1,000 ML IV ONE (12:08)
--- NOTE | 2023-12-29 13:12 | XRAY ---
Indication: Right L4-S1 RFA. Intraoperative fluoroscopy provided for 27 seconds. 5 digital spot images submitted for interpretation demonstrates posterior needle tips projecting over the expected right L4-S1 nerve roots. Correlate with intraoperative findings/report. Incidental bilateral posterior L5-S1 fusion hardware.
--- NOTE | 2023-12-29 14:52 | XRAY ---
27 seconds of fluoroscopy was used in surgery for a right L4-S1 RFA.
== END 2023-12-29 12:10 | disposition home or self-care (01) ==
LOC: SDC-PAIN 09:42
PROVIDERS: ATTEND Psychiatry & Neurology Pain Medicine
DX: M47.816 Spondylosis without myelopathy or radiculopathy, lumbar region (principal); E11.9 Type 2 diabetes mellitus without complications
CPT/HCPCS: 64635; 64636; 72100; 77002; 82947; J2704

== ENCOUNTER 2024-01-12 10:39 | Day surgery (SDC) | payer MEDICARE ==
[2024-01-12] MEDS ORDERED: BUPIVACAINE 0.5% VIAL IJ ONE (10:40)
[2024-01-12] MEDS ORDERED: LIDOCAINE HCL 1% 50 MG/5 ML VL PF IJ ONE (10:40)
[2024-01-12] MEDS ORDERED: Depo-Medrol 40 MG/ML IM ONE (10:40)
[2024-01-12] MEDS ORDERED: Pepcid 20 MG VIAL IV ONE (11:00)
[2024-01-12] MEDS ORDERED: Reglan 10 MG/2 ML ONE (11:00)
[2024-01-12] MEDS ORDERED: DIPRIVAN 200 MG/20 ML IV ONE (12:20)
[2024-01-12] MEDS ORDERED: Versed 2 MG/2 ML Injection ONE (12:22)
[2024-01-12] MEDS ORDERED: Lactated Ringers 1,000 ML IV ONE (12:43)
--- NOTE | 2024-01-12 13:29 | XRAY ---
Indication: Left L4-S1 RFA. Intraoperative fluoroscopy provided for 48 seconds. 8 digital spot image submitted for interpretation demonstrates posterior needle tips projecting over the expected left L4-S1 nerve roots. Correlate with intraoperative findings/report. Incidental bilateral posterior L5-S1 fusion hardware.
--- NOTE | 2024-01-12 13:30 | XRAY ---
48 seconds of fluoroscopy was used in surgery for a left L4-S1 RFA.
== END 2024-01-12 13:00 ==
LOC: SDC-PAIN 10:39
PROVIDERS: ATTEND Psychiatry & Neurology Pain Medicine
DX: M47.816 Spondylosis without myelopathy or radiculopathy, lumbar region (principal); E11.9 Type 2 diabetes mellitus without complications
CPT/HCPCS: 64635; 64636; 72100; 77002; 82947; J2001; J2250; J2704

== ENCOUNTER 2024-05-10 09:49 | Day surgery (SDC) | payer MEDICARE ==
[2024-05-10] MEDS ORDERED: Depo-Medrol 40 MG/ML IM ONE (09:50)
[2024-05-10] MEDS ORDERED: BUPIVACAINE 0.5% VIAL IJ ONE (09:50)
[2024-05-10] MEDS ORDERED: DIPRIVAN 200 MG/20 ML IV ONE (11:23)
[2024-05-10 12:08] LABS: ANION GAP 12.5 MEQ/L (5-15); Calcium 9.3 mg/dL (8.4-10.2); Creatinine 1 1.06 mg/dL (0.52-1.04); Potassium 4.2 mmol/L (3.5-5.1)
[2024-05-10 12:31] LABS: Creatinine, Urine Random 206.2 mg/dl; Malb/Crea Ratio 11.9 (<30)
--- NOTE | 2024-05-10 14:39 | XRAY ---
Indication: Bilateral SI joint injection. Intraoperative fluoroscopy provided for 23 seconds. 4 digital spot image submitted for interpretation demonstrates posterior needle tips projecting over the expected left and right SI joints. Small amount of contrast injected for needle tip placement. Correlate with operative findings/report. Incidental bilateral lumbosacral junction fusion hardware.
--- NOTE | 2024-05-10 17:10 | XRAY ---
23 seconds of fluoroscopy was used in surgery for a bilateral sacroiliac joint injection.
== END 2024-05-10 12:00 | disposition home or self-care (01) ==
LOC: SDC-PAIN 09:49
PROVIDERS: ATTEND Psychiatry & Neurology Pain Medicine
DX: M46.1 Sacroiliitis, not elsewhere classified (principal); E11.9 Type 2 diabetes mellitus without complications; E04.2 Nontoxic multinodular goiter; Z13.21 Encounter for screening for nutritional disorder; M85.80 Other specified disorders of bone density and structure, unspecified site; E11.40 Type 2 diabetes mellitus with diabetic neuropathy, unspecified; R73.9 Hyperglycemia, unspecified
CPT/HCPCS: 36415; 72202; 77002; 80048; 82043; 82306; 82570; 82947; 83036; 84450; 84460; G0260; 27096; J2704; Q9966